=== PATIENT | female | born 1950 | race Caucasian/White ===

== ENCOUNTER → 2017-02-21 | Outpatient (CLI) | payer MEDICARE ==
[~2017-02-21] MED LIST: /CELE20CA PO; ANAG0.5C PO; HYDREA PO; INTRON A IM; JAKA5TAB PO; NEXI20CA PO; OMEP20TA7 PO; PARO20TA4 PO; PAXI20TA OR; PERC5TAB8 PO; TRAM50TA2 OR; TUMS500C PO; VITA1CAP2 PO; ZANA2CAP PO; savella PO
--- NOTE | 2017-02-21 12:33 | REPMRS ---
Patient History The patient states she had a clinical breast exam in 02/22 Patient is postmenopausal. Family history of breast cancer in mother at age 50 or over and breast cancer in maternal aunt at age 50 or over. Benign US guided breast biopsy of the left breast, January 16, 2012. Implants in both breasts, 1994. Took estrogen for 1 year 1 month. Digital Woman Screen Mammo: February 21, 2017 - Exam #: [id number] Bilateral MLO and CC view(s) were taken. Technologist: Briana Olivo, Technologist Prior study comparison: February 21, 2016, digital woman screen mammo performed at [facility]. February 19, 2015, digital woman screen mammo performed at [facility]. FINDINGS: There are scattered fibroglandular densities. There is a fairly symmetric fibroglandular pattern in both breasts. There has been no interval development of masses, areas of architectural distortion or clusters of microcalcifications typical of malignancy. ASSESSMENT: BI-RADS/ACR category 2 mammogram. Benign finding(s). Recommendation Routine screening mammogram of both breasts in 1 year (for women over age 40). This mammogram was interpreted with the aid of an FDA-approved computer-aided dectection system. Electronically Signed By: Bethel Monique MD 02/21/17 [id number]
== END ==
LOC: M WHC 10:26
PROVIDERS: ATTEND Nurse Practitioner Women's Health
DX: Z12.31 Encounter for screening mammogram for malignant neoplasm of breast (principal); Z78.0 Asymptomatic menopausal state; Z80.3 Family history of malignant neoplasm of breast; Z92.89 Personal history of other medical treatment; Z92.23 Personal history of estrogen therapy; Z98.82 Breast implant status
CPT/HCPCS: G0202; G0463

== ENCOUNTER 2017-03-21 10:40 | Outpatient (CLI) | payer MEDICARE ==
[~2017-03-21] VITALS: Ht 172.7 cm; Wt 63.5 kg
[2017-03-21] MEDS ORDERED: NS 1,000 ML IV ONE (11:00)
--- NOTE | 2017-03-21 12:10 | ROOR ---
Patient Name: Gladys Vaughan Procedure Date: 03/21/2017 11:53 AM Date of : 1950 Age: 66 [facility] Gender: Female Note Status: Finalized Procedure: Upper GI endoscopy + Balloon Dilatation Indications: Dysphagia, Heartburn Providers: Nic Prasad MD Referring MD: MARY LEE JR, MD Requesting Provider: Medicines: Monitored Anesthesia Care Complications: No immediate complications. Procedure: Pre-Anesthesia Assessment: - The heart rate, respiratory rate, oxygen saturations, blood pressure, adequacy of pulmonary ventilation, and response to care were monitored throughout the procedure. The Endoscope was introduced through the mouth, and advanced to the second part of duodenum. The upper GI endoscopy was accomplished without difficulty. The patient tolerated the procedure well. Findings: The Z-line was regular and was found 35 cm from the incisors. A medium-sized hiatal hernia was present. A TTS dilator was passed through the scope. Dilation with an 18-19-20 mm balloon dilator was performed to 20 mm in the entire esophagus. No other significant abnormalities were identified in a careful examination of the stomach. The exam of the duodenum was otherwise normal. Impression: - Z-line regular, 35 cm from the incisors. - Medium-sized hiatal hernia. - Dilation performed in the entire esophagus. - No specimens collected. - The examination was otherwise normal. Recommendation: - Patient has a contact number available for emergencies. The signs and symptoms of potential delayed complications were discussed with the patient. Return to normal activities tomorrow. Written discharge instructions were provided to the patient. - High fiber diet. - Discharge patient to home. - Continue present medications. - Follow an antireflux regimen. - Return to referring physician. - The findings and recommendations were discussed with the patient's family. Nic Prasad MD Nic Prasad MD 03/21/2017 12:10:36 PM This report has been signed electronically. Number of Addenda: 0 Note Initiated On: 03/21/2017 11:53 AM Estimated Blood Loss: Estimated blood loss: none.
[2017-03-21] MEDS ORDERED: PROPOFOL 200 MG/20 ML VIAL As Ordered ONE (12:19)
[2017-03-21] MEDS ORDERED: LIDOCAINE 2% INJ 100 MG/5 ML SDV (FOR ANES.) As Ordered ONE (12:19)
--- NOTE | 2017-03-21 12:33 | ROOR ---
Patient Name: Gladys Vaughan Procedure Date: 03/21/2017 11:53 AM Date of : 1950 Age: 66 Room: [facility] Gender: Female Note Status: Finalized Procedure: Total Colonoscopy to cecum + Biopsy Polypectomy Indications: Screening for colorectal malignant neoplasm Providers: Nic Prasad MD Referring MD: MARY LEE JR, MD Requesting Provider: Medicines: Monitored Anesthesia Care Complications: No immediate complications. Procedure: Pre-Anesthesia Assessment: - The heart rate, respiratory rate, oxygen saturations, blood pressure, adequacy of pulmonary ventilation, and response to care were monitored throughout the procedure. The Colonoscope was introduced through the anus and advanced to the cecum, identified by appendiceal orifice and ileocecal valve. The colonoscopy was performed without difficulty. The patient tolerated the procedure well. The quality of the bowel preparation was excellent. Findings: The perianal and digital rectal examinations were normal. Non-bleeding internal hemorrhoids were found during retroflexion. The hemorrhoids were small and Grade I (internal hemorrhoids that do not prolapse). Multiple small and large-mouthed diverticula were found in the recto-sigmoid colon, sigmoid colon and descending colon. Two sessile polyps were found in the mid ascending colon. The polyps were small in size. These polyps were removed with a jumbo cold forceps. Resection and retrieval were complete. The exam was otherwise without abnormality on direct and retroflexion views. Impression: - Non-bleeding internal hemorrhoids. - Diverticulosis in the recto-sigmoid colon, in the sigmoid colon and in the descending colon. - Two small polyps in the mid ascending colon, removed with a jumbo cold forceps. Resected and retrieved. - The examination was otherwise normal on direct and retroflexion views. - The exam was otherwise normal to the cecum. Recommendation: - Patient has a contact number available for emergencies. The signs and symptoms of potential delayed complications were discussed with the patient. Return to normal activities tomorrow. Written discharge instructions were provided to the patient. - High fiber diet. - Discharge patient to home. - Continue present medications. - Await pathology results. - Repeat colonoscopy in 10 years for surveillance based on pathology results. - Return to referring physician. - The findings and recommendations were discussed with the patient's family. Nic Prasad MD Nic Prasad MD 03/21/2017 12:32:48 PM This report has been signed electronically. Number of Addenda: 0 Note Initiated On: 03/21/2017 11:53 AM Estimated Blood Loss: Estimated blood loss: none.
[2017-03-21 13:05] VITALS: BP 101/56
== END 2017-03-21 13:10 | disposition home or self-care (01) ==
LOC: M OPP 10:40
PROVIDERS: ATTEND Internal Medicine Gastroenterology
DX: Z12.11 Encounter for screening for malignant neoplasm of colon (principal); D12.2 Benign neoplasm of ascending colon; K64.0 First degree hemorrhoids; K57.30 Diverticulosis of large intestine without perforation or abscess without bleeding; R13.10 Dysphagia, unspecified; R12 Heartburn; D47.3 Essential (hemorrhagic) thrombocythemia; R16.1 Splenomegaly, not elsewhere classified; D64.9 Anemia, unspecified; K44.9 Diaphragmatic hernia without obstruction or gangrene; R19.7 Diarrhea, unspecified; F32.9 Major depressive disorder, single episode, unspecified; Z79.899 Other long term (current) drug therapy; Z87.891 Personal history of nicotine dependence

== ENCOUNTER → 2017-10-29 | Outpatient (REF) | payer MEDICARE ==
[2017-10-29 12:56] LABS: IRON (FE) 104 UG/DL (50-170); PERCENT SATURATION 32.1 % (13.2-45.0); TOTAL IRON BINDING CAPACITY 324 UG/DL (250-450)
== END ==
LOC: M LAB REF 11:54
DX: D47.3 Essential (hemorrhagic) thrombocythemia (principal)
CPT/HCPCS: 83550

== ENCOUNTER → 2018-02-25 | Outpatient (CLI) | payer MEDICARE | LOC: M WHC 10:31 | DX: Z12.31 Encounter for screening mammogram for malignant neoplasm of breast (principal); Z98.82 Breast implant status; Z92.89 Personal history of other medical treatment; Z92.23 Personal history of estrogen therapy; Z80.3 Family history of malignant neoplasm of breast | CPT/HCPCS: 77067 ==

== ENCOUNTER → 2018-03-20 | Outpatient (CLI) | payer MEDICARE | LOC: M RAD 08:54 | DX: D47.3 Essential (hemorrhagic) thrombocythemia (principal) | CPT/HCPCS: 76705 ==

== ENCOUNTER 2018-10-01 09:47 | Emergency (ER) | payer MEDICARE ==
[~2018-10-01 09:47] MED LIST changes: -/CELE20CA PO; +CELE1CAP4 PO; +VITA-183 PO; -VITA1CAP2 PO
[2018-10-01] MEDS ORDERED: NS 500 ML IV ONE (10:45)
[2018-10-01 10:52] LABS: HEMATOCRIT 26.3 % (36.0-47.0); HEMOGLOBIN 8.1 g/dl (12.0-15.5); MEAN CORPUSCULAR HEMOGLOBIN 29.9 pg (27.0-33.0); MEAN CORPUSCULAR HGB CONC 30.8 g/dl (32.0-36.5); PLATELET COUNT, AUTOMATED 255 10^3/uL (150-450); RED BLOOD COUNT 2.71 10^6/uL (4.00-5.40)
[2018-10-01 11:06] LABS: CALCIUM LEVEL 8.8 MG/DL (8.8-10.2); CREATININE FOR GFR 1.32 MG/DL (0.55-1.30); FREE T4 0.83 NG/DL (0.76-1.46); GLOMERULAR FILTRATION RATE 42.5 (>45); MAGNESIUM LEVEL 2.4 MG/DL (1.8-2.4); POTASSIUM SERUM 4.1 MEQ/L (3.5-5.1); THYROID STIMULATING HORMONE 3.55 uIU/ML (0.358-3.740)
[2018-10-01 11:52] LABS: LYMPHOCYTES 31 % (16-52); MONOCYTES 6 % (0-8); NEUTROPHILS 50 % (35-75)
[2018-10-01 11:53] LABS: ATYPICAL LYMPH 3 % (0-5); BLAST CELLS 9 % (0-0)
[2018-10-01 12:12] LABS: ANISOCYTOSIS 2+; OVALOCYTES 1+; POIKILOCYTOSIS 1+; TARGET CELLS 2+
[2018-10-01 12:13] LABS: GIANT PLATELETS 2+; PLATELET ESTIMATE NORMAL (NORMAL)
[2018-10-01 13:48] LABS: APPEARANCE, URINE HAZY (CLEAR); BACTERIA, URINE AUTO NEGATIVE (NEGATIVE); BILIRUBIN, URINE AUTO NEGATIVE (NEGATIVE); BLOOD, URINE BLOOD NEGATIVE (NEGATIVE); COLOR, URINE YELLOW (YELLOW); GLUCOSE, URINE (UA) AUTO NEGATIVE (NEGATIVE); KETONE, URINE AUTO NEGATIVE (NEGATIVE); LEUKOCYTE ESTERASE, URINE AUTO NEGATIVE (NEGATIVE); MUCUS, URINE SMALL (NEGATIVE); NITRITE, URINE AUTO NEGATIVE (NEGATIVE); PROTEIN, URINE AUTO 1+ mg/dL (NEGATIVE); RBC, URINE AUTO 0 /HPF (0-3); SPECIFIC GRAVITY URINE AUTO 1.016 (1.002-1.035); SQUAMOUS EPITHELIAL CELL UR AU 0 /HPF (0-6); WBC, URINE AUTO 3 /HPF (0-3)
[2018-10-01 15:15] VITALS: BP 166/69
--- NOTE | 2018-10-01 19:55 | ECGEPIP ---
Stationary ECG Study [facility] - ED Test Date: 2018-10-01 Pat Name: ASHLEE RIBEIRO Department: Room: - Gender: F Clarifier: : 1950 Requested By: Liat Ortiz Order Number: [id number] Reading MD: Douglas Palafox Measurements Intervals Branscomb Rate: 67 P: 46 ND: 145 QRS: 50 QRSD: 86 T: 67 QT: 380 QTc: 401 Interpretive Statements SINUS RHYTHM POSSIBLE LEFT ATRIAL ENLARGEMENT NSTTW ABNORMALITIES SIMILAR TO 05/08/16 Electronically Signed On 10-01-2018 19:54:32 EDT by Douglas Palafox
== END 2018-10-01 15:43 | disposition home or self-care (01) ==
LOC: M ED 09:47
DX: C92.10 Chronic myeloid leukemia, BCR/ABL-positive, not having achieved remission (principal); I10 Essential (primary) hypertension; R55 Syncope and collapse; Z79.899 Other long term (current) drug therapy

== ENCOUNTER → 2019-02-26 | Outpatient (REF) | payer MEDICARE | LOC: M LAB REF 17:27 | PROVIDERS: ATTEND Internal Medicine | DX: D47.1 Chronic myeloproliferative disease (principal) ==

== ENCOUNTER → 2019-03-17 | Outpatient (REF) | payer MEDICARE ==
[2019-03-17 14:57] LABS: AMYLASE 83 U/L (25-115); LIPASE 245 U/L (73-393)
== END ==
LOC: M LAB REF 13:19
PROVIDERS: ATTEND Internal Medicine
DX: M79.7 Fibromyalgia (principal)

== ENCOUNTER → 2019-03-24 | Outpatient (REF) | payer MEDICARE ==
[~2019-03-24] MED LIST changes: +ANAG0.5C2; +LOPE2CAP; +RANI150T14; +VITA100T89 PO; +[UNRECOGNIZED DRUG - CODE]; +[UNRECOGNIZED DRUG - OTHER]
[2019-03-24 19:49] LABS: AMYLASE 81 U/L (25-115); LIPASE 203 U/L (73-393)
== END ==
LOC: M LAB REF 19:04
PROVIDERS: ATTEND Internal Medicine
DX: D75.9 Disease of blood and blood-forming organs, unspecified (principal)

== ENCOUNTER 2019-03-28 11:55 | Emergency (ER) | payer MEDICARE ==
[~2019-03-28] VITALS: Ht 172.7 cm; Wt 147.0 kg
[~2019-03-28 11:55] MED LIST changes: -ANAG0.5C2; -LOPE2CAP; -RANI150T14; -VITA100T89 PO; -[UNRECOGNIZED DRUG - CODE]; -[UNRECOGNIZED DRUG - OTHER]
[2019-03-28] MEDS ORDERED: [UNRECOGNIZED DRUG - CODE] (12:11)
[2019-03-28] MEDS ORDERED: RANI150T14 (12:11)
[2019-03-28] MEDS ORDERED: LOPE2CAP (12:11)
[2019-03-28] MEDS ORDERED: [UNRECOGNIZED DRUG - OTHER] (12:11)
[2019-03-28] MEDS ORDERED: ANAG0.5C2 (12:11)
[2019-03-28] MEDS ORDERED: VITA100T89 PO (12:13)
[2019-03-28] MEDS ORDERED: NS 1,000 ML IV ONE ×2 (13:45→15:15)
[2019-03-28 14:02] LABS: HEMATOCRIT 27.2 % (36.0-47.0); HEMOGLOBIN 8.7 g/dl (12.0-15.5); MEAN CORPUSCULAR HEMOGLOBIN 30.7 pg (27.0-33.0); MEAN CORPUSCULAR VOLUME 96.1 fl (80.0-96.0); PLATELET COUNT, AUTOMATED 449 10^3/uL (150-450); RED BLOOD COUNT 2.83 10^6/uL (4.00-5.40); WHITE BLOOD COUNT 4.8 10^3/uL (4.0-10.0)
[2019-03-28 14:35] LABS: ALBUMIN 4.1 GM/DL (3.2-5.2); BILIRUBIN,TOTAL 0.4 MG/DL (0.2-1.0); CALCIUM LEVEL 9.4 MG/DL (8.8-10.2); CREATININE FOR GFR 1.34 MG/DL (0.55-1.30); GLOMERULAR FILTRATION RATE 41.7 (>45); POTASSIUM SERUM 4.5 MEQ/L (3.5-5.1); TOTAL PROTEIN 7.2 GM/DL (6.4-8.2)
[2019-03-28 14:40] LABS: ATYPICAL LYMPH 1 % (0-5); BLAST CELLS 7 % (0-0); GIANT PLATELETS 2+; LYMPHOCYTES 18 % (16-44); METAMYELOCYTES 1 % (0-0); MONOCYTES 4 % (0-5); MYELOCYTES 5 % (0-0); NEUTROPHILS 58 % (28-66); NUCLEATED RED BLOOD CELL 1 % (0-0); PLATELET ESTIMATE NORMAL (NORMAL)
[2019-03-28 14:41] LABS: ANISOCYTOSIS 2+; OVALOCYTES 2+; POIKILOCYTOSIS 2+; TEAR DROP CELLS 2+
[2019-03-28 17:57] VITALS: BP 124/58
== END 2019-03-28 18:07 | disposition home or self-care (01) ==
LOC: EDBD 11:55 → M ED 11:55
DX: R11.10 Vomiting, unspecified (principal); T50.995A Adverse effect of other drugs, medicaments and biological substances, initial encounter; X58.XXXA Exposure to other specified factors, initial encounter; Y92.89 Other specified places as the place of occurrence of the external cause; Z79.899 Other long term (current) drug therapy

== ENCOUNTER → 2019-04-01 | Outpatient (CLI) | payer MEDICARE ==
[~2019-04-01] MED LIST changes: +ANAG0.5C2; +LOPE2CAP; +RANI150T14; +VITA100T89 PO; +[UNRECOGNIZED DRUG - CODE]; +[UNRECOGNIZED DRUG - OTHER]
--- NOTE | 2019-04-01 12:17 | REPMRS ---
Patient History The patient states she has not had a clinical breast exam in over a year. Patient is postmenopausal and had previous chemotherapy at age 68. Family history of breast cancer at age 50 or over in mother, breast cancer at age 50 or over in maternal aunt. Benign US guided breast biopsy of the left breast, January 16, 2012. Implants in both breasts, 1994. Took estrogen for 1 year 1 month. 3D TOMOSYNTHESIS WAS PERFORMED. The [facility] lifetime risk for breast cancer is 9.2%. Digital Woman Screen Mammo: April 01, 2019 - Exam #: [id number] Bilateral CC and MLO view(s) were taken. Technologist: Melissa Boyd, Technologist Prior study comparison: February 25, 2018, bilateral digital woman screen mammo performed at [facility]. February 21, 2017, digital woman screen mammo performed at [facility]. FINDINGS: There are scattered fibroglandular densities. There has been no change in the appearance of the mammogram from the prior studies. There is a mild amount of residual fibroglandular tissue which is fairly symmetric. There is no interval development of dominant mass, architectural distortion, or clustered microcalcification suggestive of malignancy. Assessment: BI-RADS/ACR category 1 mammogram. Negative Mammogram. Recommendation Routine screening mammogram in 1 year (for women over age 40). This mammogram was interpreted with the aid of an FDA-approved computer-aided dectection system. Electronically Signed By: Bethel Monique MD 04/01/19 2159
== END ==
LOC: M WHC 11:08
PROVIDERS: ATTEND Nurse Practitioner Women's Health
DX: Z12.31 Encounter for screening mammogram for malignant neoplasm of breast (principal); Z78.0 Asymptomatic menopausal state; Z92.21 Personal history of antineoplastic chemotherapy; Z80.3 Family history of malignant neoplasm of breast; Z98.82 Breast implant status

== ENCOUNTER → 2019-04-26 | Outpatient (CLI) | payer MEDICARE | LOC: M LAB 13:45 | PROVIDERS: ATTEND Internal Medicine Hematology | DX: Z01.83 Encounter for blood typing (principal) ==

== ENCOUNTER 2019-04-27 08:45 | Outpatient (CLI) | payer MEDICARE ==
[2019-04-27] VITALS (8 sets, daily range): BP systolic 159–180; BP diastolic 70–86
[~2019-04-27] VITALS: Ht 172.7 cm; Wt 67.6 kg
== END 2019-04-27 15:10 | disposition home or self-care (01) ==
LOC: M OPCLI5PR 08:45 → M MS5PR 08:47 → M OPCLI5PR 15:10
PROVIDERS: ATTEND Internal Medicine Hematology
DX: D64.9 Anemia, unspecified (principal)
CPT/HCPCS: 36430; P9040

== ENCOUNTER → 2019-06-13 | Outpatient (CLI) | payer MEDICARE ==
[~2019-06-13] MED LIST changes: +LISI10TA4 PO; +PARO30TA PO
--- NOTE | 2019-06-13 11:36 | REP ---
Left upper extremity duplex Doppler venous ultrasound. Real time compression and duplex Doppler evaluation of the left upper extremity deep venous system is performed. The left subclavian, jugular, axillary, brachial, basilic and cephalic veins are fully compressible where accessible with transducer pressure, and demonstrate no intraluminal thrombus and normal venous waveforms. There is no evidence of deep venous thrombosis. Impression: No evidence of deep venous thrombosis of the left upper extremity deep vein system. Electronically Signed by Bethel Monique MD 06/13/2019 11:28 A
== END ==
LOC: M RAD 10:06
PROVIDERS: ATTEND Internal Medicine Hematology & Oncology
DX: D47.3 Essential (hemorrhagic) thrombocythemia (principal); M79.602 Pain in left arm

== ENCOUNTER → 2019-12-04 | Outpatient (CLI) | payer MEDICARE ==
[~2019-12-04] MED LIST changes: -PARO30TA PO; +PARO30TA65 PO; +VITAD1000T PO; +[UNRECOGNIZED DRUG - CODE] PO
[2019-12-04 14:46] LABS: EOS % 0.2 % (0.0-3.0); HEMATOCRIT 23.4 % (36.0-47.0); HEMOGLOBIN 7.1 g/dl (12.0-15.5); LYMPH # 1.1 10^3/uL (1.5-5.0); LYMPH % 27.3 % (24.0-44.0); MEAN CORPUSCULAR HEMOGLOBIN 29.3 pg (27.0-33.0); MEAN CORPUSCULAR HGB CONC 30.3 g/dl (32.0-36.5); MEAN CORPUSCULAR VOLUME 96.7 fl (80.0-96.0); MONO # 0.9 10^3/uL (0.0-0.8); MONO % 22.2 % (0.0-5.0); NEUTROPHILS # 1.5 10^3/uL (1.5-8.5); NEUTROPHILS % 36.2 % (36.0-66.0); PLATELET COUNT, AUTOMATED 414 10^3/uL (150-450); RED BLOOD COUNT 2.42 10^6/uL (4.00-5.40); WHITE BLOOD COUNT 4.2 10^3/uL (4.0-10.0)
[2019-12-04 15:09] LABS: ALBUMIN 3.7 GM/DL (3.2-5.2); BILIRUBIN,TOTAL 0.2 MG/DL (0.2-1.0); CALCIUM LEVEL 8.6 MG/DL (8.8-10.2); CREATININE FOR GFR 1.13 MG/DL (0.55-1.30); GLOMERULAR FILTRATION RATE 50.7 (>39); POTASSIUM SERUM 4.9 MEQ/L (3.5-5.1); TOTAL PROTEIN 6.9 GM/DL (6.4-8.2)
[2019-12-04 16:05] LABS: FREE T4 0.92 NG/DL (0.76-1.46); PERCENT SATURATION 20.2 % (13.2-45.0); THYROID STIMULATING HORMONE 1.29 uIU/ML (0.358-3.740)
== END ==
LOC: M LAB 13:37
PROVIDERS: ATTEND Internal Medicine Hematology
DX: D47.3 Essential (hemorrhagic) thrombocythemia (principal); D47.1 Chronic myeloproliferative disease; Z79.899 Other long term (current) drug therapy

== ENCOUNTER → 2019-12-15 | Outpatient (REF) | payer MEDICARE | LOC: M LAB REF 12:12 | PROVIDERS: ATTEND Internal Medicine | DX: D64.9 Anemia, unspecified (principal) ==

== ENCOUNTER 2019-12-17 08:34 | Outpatient (CLI) | payer MEDICARE ==
[~2019-12-17] VITALS: Ht 172.7 cm; Wt 65.0 kg
[~2019-12-17 08:34] MED LIST changes: +ACETAMINOPHEN TAB 650MG DOSE (2X325MG) PO SCH; +diphenhydrAMINE 25MG CAP PO SCH
[2019-12-17 08:59] VITALS: BP 118/57
[2019-12-17 09:11] VITALS: BP 118/57
[2019-12-17 09:30] VITALS: BP 128/66
[2019-12-17 10:28] VITALS: BP 137/65
[2019-12-17 10:45] VITALS: BP 168/71
[2019-12-17 11:10] VITALS: BP 196/78
== END 2019-12-17 11:10 | disposition home or self-care (01) ==
LOC: M INFU 08:34
PROVIDERS: ATTEND Internal Medicine
DX: D64.9 Anemia, unspecified (principal)
CPT/HCPCS: 36430; P9016

== ENCOUNTER 2019-12-25 21:57 | Observation (INO) | payer MEDICARE ==
[~2019-12-25] VITALS: Ht 172.7 cm; Wt 65.5 kg
[~2019-12-25 21:57] MED LIST changes: -ACETAMINOPHEN TAB 650MG DOSE (2X325MG) PO SCH; -diphenhydrAMINE 25MG CAP PO SCH
[2019-12-25] MEDS: NS 1,000 ML IV SCH (22:17)
[2019-12-25] MEDS: GASTROGRAFIN SOLUTION 30ML PO SCH (23:37)
[2019-12-26] MEDS: GASTROGRAFIN SOLUTION 30ML PO SCH (00:11)
[2019-12-26 00:13] LABS: HEMATOCRIT 27.5 % (36.0-47.0); HEMOGLOBIN 8.5 g/dl (12.0-15.5); MEAN CORPUSCULAR HEMOGLOBIN 29.4 pg (27.0-33.0); MEAN CORPUSCULAR HGB CONC 30.9 g/dl (32.0-36.5); MEAN CORPUSCULAR VOLUME 95.2 fl (80.0-96.0); PLATELET COUNT, AUTOMATED 370 10^3/uL (150-450); RED BLOOD COUNT 2.89 10^6/uL (4.00-5.40); WHITE BLOOD COUNT 4.9 10^3/uL (4.0-10.0)
[2019-12-26 00:34] LABS: ATYPICAL LYMPH 3 % (0-5); BASOPHILS 2 % (0-1); BLAST CELLS 1 % (0-0); LYMPHOCYTES 18 % (16-44); METAMYELOCYTES 2 % (0-0); MONOCYTES 6 % (0-5); MYELOCYTES 2 % (0-0); NEUTROPHILS 64 % (28-66)
[2019-12-26 00:35] LABS: ANISOCYTOSIS 1+; PLATELET ESTIMATE NORMAL (NORMAL); POIKILOCYTOSIS 1+
[2019-12-26 00:36] LABS: OVALOCYTES 1+; TEAR DROP CELLS 1+
[2019-12-26 00:41] LABS: ALBUMIN 3.5 GM/DL (3.2-5.2); BILIRUBIN,DIRECT 0.1 MG/DL (0.0-0.2); BILIRUBIN,TOTAL 0.2 MG/DL (0.2-1.0); CALCIUM LEVEL 8.2 MG/DL (8.8-10.2); CREATININE FOR GFR 1.09 MG/DL (0.55-1.30); GLOMERULAR FILTRATION RATE 52.8 (>39); POTASSIUM SERUM 4.9 MEQ/L (3.5-5.1); TOTAL PROTEIN 6.4 GM/DL (6.4-8.2)
[2019-12-26] MEDS ORDERED: ISOVUE-370 76% 100ML VIAL As Ordered ONE (00:46)
--- NOTE | 2019-12-26 01:57 | REPVR ---
PROCEDURE INFORMATION: Exam: CT Abdomen And Pelvis With Contrast Exam date and time: 12/25/2019 10:17 PM Age: 69 years old Clinical indication: Abdominal pain; Generalized; Additional info: Gen abd pain vomiting TECHNIQUE: Imaging protocol: Computed tomography of the abdomen and pelvis with intravenous contrast. Radiation optimization: All CT scans at this facility use at least one of these dose optimization techniques: automated exposure control; mA and/or kV adjustment per patient size (includes targeted exams where dose is matched to clinical indication); or iterative reconstruction. Contrast material: ISO; Contrast volume: 100 ml; Contrast route: INTRAVENOUS (IV); COMPARISON: Abdomen, limited US 2018-03-20 09:12 FINDINGS: Mediastinal space: Small to medium size hiatal hernia. Liver: Small, less than 5 mm, liver hypodensity. Highly likely to be benign and does not require follow-up imaging or biopsy per ACR. Gallbladder and bile ducts: Normal. No calcified stones. No ductal dilation. Pancreas: Pancreatic divisum incidentally noted. Spleen: Splenomegaly. Adrenals: Normal. No mass. Kidneys and ureters: Normal. No hydronephrosis. Stomach and bowel: Excessive fluid in the colon, correlate for diarrheal illness. Appendix: No evidence of appendicitis. Intraperitoneal space: Unremarkable. No free air. No significant fluid collection. Vasculature: Unremarkable. No abdominal aortic aneurysm. Lymph nodes: Unremarkable. No enlarged lymph nodes. Bladder: Unremarkable as visualized. Reproductive: Unremarkable as visualized. Bones/joints: L4 small bone island. Soft tissues: Left inguinal fat protruding hernia. Breast implants. IMPRESSION: 1. Small to medium size hiatal hernia. 2. Splenomegaly. 3. Excessive fluid in the colon, correlate for diarrheal illness. Electronically signed by: Jerad Silveira On 12/26/2019 01:57:06 AM
[2019-12-26] MEDS ORDERED: NS 1,000 ML IV ONE (03:15)
[2019-12-26] MEDS ORDERED: ZOLP5TAB PO (03:21)
[2019-12-26] MEDS ORDERED: [UNRECOGNIZED DRUG - CODE] PO (03:21)
[2019-12-26] MEDS ORDERED: LOPERAMIDE 2 MG CAPLET PO PRN (05:00)
--- NOTE | 2019-12-26 05:33 | HPEPDOC ---
[facility] Medical History & Physical Date of Admission Dec 26, 2019 Date of Service: Dec 26, 2019 Attending Physician: DONNIE MCKEON MD History and Physical CHIEF COMPLAINT: Vomiting and diarrhea HISTORY OF PRESENT ILLNESS: 69-year-old female with past medical history of essential thrombocythemia, splenomegaly, anemia, hypertension and GERD presents with vomiting and diarrhea. Patient reports sudden onset of vomiting at 8 PM last night followed by diarrhea a few hours later. Patient has had extensive watery diarrhea since coming to the emergency department. She reports eating 2 days old leftovers at 4 PM yesterday, which included chicken. She denies any fever, sick contacts, shortness of breath, chest pain, coughing, or urinary complaints. 10 point review of system is negative except for above PAST MEDICAL HISTORY: 1. Essential thrombocythemia. 2. Splenomegaly. 3. Chronic anemia. 4. Hypertension. 5. GERD PAST SURGICAL HISTORY: 1. Hernia repair. SOCIAL HISTORY: Previous smoker. Denies alcohol use. Denies drug use FAMILY HISTORY: Negative for malignancy ALLERGIES: Please see below. HOME MEDICATIONS: Please see below. PHYSICAL EXAMINATION: VITAL SIGNS: Please see below. GENERAL: No distress HEENT: Normocephalic, atraumatic, moist mucous membranes NECK: Supple CARDIOVASCULAR EXAMINATION: S1, S2, no murmurs RESPIRATORY EXAMINATION: Scattered rhonchi, no wheezing ABDOMINAL EXAMINATION: Soft, nontender, nondistended, hypoactive bowel sounds EXTREMITIES: Range of motion intact SKIN: No rash NEUROLOGICAL EXAMINATION: Alert and oriented 3, no focal deficits PSYCHIATRIC EXAMINATION: Calm and cooperative LABORATORY DATA: See below. IMAGING: CT abdomen and pelvis without acute pathology MICROBIOLOGY: Please see below. ASSESSMENT: 59-year-old female with multiple medical comorbidities is being admitted for gastroenteritis. PLAN: 1. Vomiting/diarrhea Food poisoning from eating leftovers, GI panel negative, Imodium as needed, IV fluids, can likely be discharged in 24-48 hours. 2. Essential thrombocythemia. Continue Anagrelide 1.5 mg daily 3. GERD. Continue Nexium 4. Hypertension. Continue lisinopril DVT prophylaxis: Lovenox. GI prophylaxis: Home PPI Vital Signs Vital Signs Date Time Temp Pulse Resp B/P (MAP) Pulse Ox O2 Delivery O2 Flow Rate FiO2 12/26/19 00:57 77 96 12/26/19 00:11 164/80 (108) 156/78 (104) 12/25/19 22:19 99.9 16 Laboratory Data Labs 24H Laboratory Tests 2 12/25/19 23:49: Immature Granulocyte % (Auto) , Neutrophils (%) (Auto) , Nucleated Red Blood Cells % (auto) 0.6H, Neutrophils 64, Band Neutrophils 2, Lymphocytes (Manual) 18, Monocytes (Manual) 6H, Basophils (Manual) 2H, Metamyelocytes 2H, Myelocytes 2H, Blastocytes 1H, Atypical Lymphocytes 3, Poikilocytosis 1+, Anisocytosis 1+, Tear Drop Cells 1+, Ovalocytes 1+, Platelet Estimate NORMAL, Anion Gap 4L, Glomerular Filtration Rate 52.8, Calcium Level 8.2L, Total Bilirubin 0.2, Direct Bilirubin 0.1, Aspartate Amino Transf (AST/SGOT) 19, Alanine Aminotransferase (ALT/SGPT) 22, Alkaline Phosphatase 58, Total Protein 6.4, Albumin 3.5, Albumin/Globulin Ratio 1.2, Lipase 632H CBC/BMP Laboratory Tests 12/25/19 23:49 Microbiology Microbiology 12/26/19 Gastrointestinal Tract Panel (PCR) - Final, Complete Home Medications Scheduled Anagrelide HCl (Agrylin) 0.5 Mg Capsule, 1 MG PO QAM Anagrelide HCl (Agrylin) 0.5 Mg Capsule, 0.5 MG PO DAILY @1500 Cholecalciferol (Vitamin D3) (Vitamin D3) 1,000 Unit Tablet, 1,000 UNITS PO DAILY Esomeprazole Magnesium (Nexium) 20 Mg Cap, 20 MG PO DAILY @ 1500 Lisinopril (Lisinopril) 10 Mg Tablet, 10 MG PO QHS @ 1900 Paroxetine (Paroxetine HCl) 30 Mg Tablet, 30 MG PO DAILY Zolpidem Tartrate (Zolpidem Tartrate) 5 Mg Tablet, 5 MG PO QHS @ 1900 Allergies Coded Allergies: fedratinib (Verified Allergy, Intermediate, 06/10/19) A-FIB/CHADSVASC A-FIB History Current/History of A-Fib/PAF?: No DONNIE MCKEON MD Dec 26, 2019 05:33
[2019-12-26 05:51] VITALS: BP 150/80
[2019-12-26] MEDS: NS 1,000 ML IV SCH (06:30)
[2019-12-26] MEDS ORDERED: VITAMIN D 1,000 INTERNATIONAL UNITS TABLET PO SCH (09:00)
[2019-12-26] MEDS ORDERED: ENOXAPARIN 40MG/0.4ML SYRINGE (J1650 PER 10MG) SC SCH (09:00)
[2019-12-26] MEDS ORDERED: PARoxetine 10MG TABLET PO SCH (09:00)
[2019-12-26] MEDS ORDERED: ENTER DRUG NAME HERE (PATIENT'S OWN MED) PO SCH (09:00)
[2019-12-26 12:00] VITALS: BP 162/70
--- NOTE | 2019-12-26 14:22 | DS.PDOC ---
Discharge Summary General Date of Admission Dec 25, 2019 at 21:58 Date of Discharge 12/26/2019 Discharge Summary PROCEDURES PERFORMED DURING STAY: [None]. ADMITTING DIAGNOSES / DISCHARGE DIAGNOSES: Intractable Nausea / Vomiting and Diarrhea - likely 2/2 food poisoning Elevated lipase - likely 2/2 nausea / vomiting Essential thrombocythemia Hypertension GERD DVT prophylaxis COMPLICATIONS/CHIEF COMPLAINT: Nausea / Vomiting HISTORY OF PRESENT ILLNESS: Patient is a 69-year-old female with PMHx of essential thrombocythemia, splenomegaly, anemia, hypertension and GERD presents with vomiting and diarrhea. Patient reports sudden onset of vomiting at 8 PM last night followed by diarrhea a few hours later. Patient has had extensive watery diarrhea since coming to the emergency department. She reports eating 2 days old leftovers at 4 PM yesterday, which included chicken. She denies any fever, sick contacts, shortness of breath, chest pain, coughing, or urinary complaints. HOSPITAL COURSE: Intractable Nausea / Vomiting and Diarrhea - likely 2/2 food poisoning - Clinically reports resolution of N/V and diarrhea - Hemodynamically stable / afebrile - Lab work noted - GI panel negative - CT abdomen / pelvis 12/24: 1. Small to medium size hiatal hernia. 2. Splenomegaly. 3. Excessive fluid in the colon, correlate for diarrheal illness. - s/p Imodium; advised to continue PRN as needed on discharge; advised OTC use Elevated lipase - likely 2/2 nausea / vomiting - No epigastric tenderness - Not enough criteria met for pancreatitis diagnosis Essential thrombocythemia - c/w Anagrelide Hypertension - Moderately elevated today - Will DC IV fluids - c/w lisinopril GERD - c/w PPI DVT prophylaxis - c/w Lovenox DISCHARGE MEDICATIONS: Please see below. ALLERGIES: Please see below. PHYSICAL EXAMINATION ON DISCHARGE: Vitals (See below) General: Lying in bed, appears comfortable, AAOx3 HEENT: NC, AT CVS: +S1S2 Lungs: Fair air entry b/l, -w/r/r Abdomen: Soft, ND, NT Extremities: - Edema, - Calf tenderness LABORATORY DATA: Please see below. ACTIVITY: [As tolerated]. DISCHARGE PLAN: Follow up with PCP within 7 days Remain compliant with treatment plan and medications Return to the ER if you experience any problems DISPOSITION: Home, Self-Care. DISCHARGE CONDITION: [Stable]. TIME SPENT ON DISCHARGE: 35 minutes. Vital Signs/I&Os Vital Signs Date Time Temp Pulse Resp B/P (MAP) Pulse Ox O2 Delivery O2 Flow Rate FiO2 12/26/19 12:00 97.7 71 16 162/70 (100) 98 Room Air I&O- Last 24 Hours up to 6 AM0 12/26/19 06:00 Intake Total 1300 ml Balance 1300 ml Laboratory Data Labs 24H Laboratory Tests 2 12/25/19 23:49: Immature Granulocyte % (Auto) , Neutrophils (%) (Auto) , Nucleated Red Blood Cells % (auto) 0.6H, Neutrophils 64, Band Neutrophils 2, Lymphocytes (Manual) 18, Monocytes (Manual) 6H, Basophils (Manual) 2H, Metamyelocytes 2H, Myelocytes 2H, Blastocytes 1H, Atypical Lymphocytes 3, Poikilocytosis 1+, Anisocytosis 1+, Tear Drop Cells 1+, Ovalocytes 1+, Platelet Estimate NORMAL, Anion Gap 4L, Glomerular Filtration Rate 52.8, Calcium Level 8.2L, Total Bilirubin 0.2, Direct Bilirubin 0.1, Aspartate Amino Transf (AST/SGOT) 19, Alanine Aminotransferase (ALT/SGPT) 22, Alkaline Phosphatase 58, Total Protein 6.4, Albumin 3.5, Albumin/Globulin Ratio 1.2, Lipase 632H CBC/BMP Laboratory Tests 12/25/19 23:49 Microbiology Microbiology 12/26/19 Gastrointestinal Tract Panel (PCR) - Final, Complete Discharge Medications Scheduled Anagrelide HCl (Agrylin) 0.5 Mg Capsule, 1 MG PO QAM, (Reported) Anagrelide HCl (Agrylin) 0.5 Mg Capsule, 0.5 MG PO DAILY, (Reported) @1500 Cholecalciferol (Vitamin D3) (Vitamin D3) 1,000 Unit Tablet, 1,000 UNITS PO DAILY, (Reported) Esomeprazole Magnesium (Nexium) 20 Mg Cap, 20 MG PO DAILY, (Reported) @ 1500 Lisinopril (Lisinopril) 10 Mg Tablet, 10 MG PO QHS, (Reported) @ 1900 Paroxetine (Paroxetine HCl) 30 Mg Tablet, 30 MG PO DAILY, (Reported) Zolpidem Tartrate (Zolpidem Tartrate) 5 Mg Tablet, 5 MG PO QHS, (Reported) @ 1900 Allergies Coded Allergies: fedratinib (Verified Allergy, Intermediate, 06/10/19) ALISHA DENISE MD Dec 26, 2019 14:22
[2019-12-26] MEDS ORDERED: PANTOPRAZOLE 40MG TAB (PROTONIX) PO SCH (15:00)
[2019-12-26] MEDS ORDERED: lisinopriL 10 MG TAB PO SCH (20:00)
[2019-12-26] MEDS ORDERED: zolPIDEM TARTRATE 5 MG TAB PO SCH (20:00)
== END 2019-12-26 13:31 | disposition home or self-care (01) ==
LOC: M ED 21:57 → M ED INP 21:58 → ENRESERV 12-26 05:02 → M PCU 12-26 05:51
PROVIDERS: ADMIT Internal Medicine; ATTEND Internal Medicine
DX: R11.2 Nausea with vomiting, unspecified (principal); R19.7 Diarrhea, unspecified; R74.8 Abnormal levels of other serum enzymes; D47.3 Essential (hemorrhagic) thrombocythemia; R16.1 Splenomegaly, not elsewhere classified; K44.9 Diaphragmatic hernia without obstruction or gangrene; I10 Essential (primary) hypertension; K21.9 Gastro-esophageal reflux disease without esophagitis; D64.9 Anemia, unspecified; F32.9 Major depressive disorder, single episode, unspecified; Z79.899 Other long term (current) drug therapy; Z88.8 Allergy status to other drugs, medicaments and biological substances; Z87.891 Personal history of nicotine dependence
CPT/HCPCS: 36415; 74177; 80048; 80076; 83690; 85025; 87507; 93041; 99285; G0378; Q9963; Q9967

== ENCOUNTER → 2020-02-10 | Outpatient (REF) | payer MEDICARE ==
[~2020-02-10] MED LIST changes: +ARAN200I3 IV; +D31000TA2 PO; +HYDR12CA PO; +LISI-538 PO; +LOPE1CAP5 PO; -VITAD1000T PO; +ZOLP5TAB PO
== END ==
LOC: M LAB REF 10:38
PROVIDERS: ATTEND Internal Medicine
DX: D64.9 Anemia, unspecified (principal)

== ENCOUNTER 2020-02-11 09:30 | Outpatient (CLI) | payer MEDICARE ==
[~2020-02-11 09:30] MED LIST changes: +ACETAMINOPHEN TAB 650MG DOSE (2X325MG) As Ordered ONE; +ACETAMINOPHEN TAB 650MG DOSE (2X325MG) ONE; -ARAN200I3 IV; -HYDR12CA PO; -LISI-538 PO; -LOPE1CAP5 PO; +diphenhydrAMINE 25MG CAP As Ordered ONE; +diphenhydrAMINE 25MG CAP ONE
== END 2020-02-11 14:00 | disposition home or self-care (01) ==
LOC: M INFU 09:30
PROVIDERS: ATTEND Internal Medicine
DX: D64.9 Anemia, unspecified (principal)
CPT/HCPCS: 36430; 86920; P9016

== ENCOUNTER → 2020-03-22 | Outpatient (CLI) | payer MEDICARE ==
[~2020-03-22] MED LIST changes: -ACETAMINOPHEN TAB 650MG DOSE (2X325MG) As Ordered ONE; -ACETAMINOPHEN TAB 650MG DOSE (2X325MG) ONE; +ARAN200I3 IV; +HYDR12CA PO; +LISI-538 PO; +LOPE1CAP5 PO; -diphenhydrAMINE 25MG CAP As Ordered ONE; -diphenhydrAMINE 25MG CAP ONE
[2020-03-22 12:44] LABS: HEMOGLOBIN 8.4 g/dl (12.0-15.5); MEAN CORPUSCULAR HEMOGLOBIN 28.5 pg (27.0-33.0); MEAN CORPUSCULAR VOLUME 94.9 fl (80.0-96.0); PLATELET COUNT, AUTOMATED 454 10^3/uL (150-450); RED BLOOD COUNT 2.95 10^6/uL (4.00-5.40); WHITE BLOOD COUNT 5.6 10^3/uL (4.0-10.0)
[2020-03-22 13:20] LABS: BILIRUBIN,TOTAL 0.3 MG/DL (0.2-1.0); CALCIUM LEVEL 9.2 MG/DL (8.8-10.2); CREATININE FOR GFR 1.22 MG/DL (0.55-1.30); GLOMERULAR FILTRATION RATE 46.4 (>39); POTASSIUM SERUM 5.7 MEQ/L (3.5-5.1); TOTAL PROTEIN 7.1 GM/DL (6.4-8.2)
[2020-03-22 13:40] LABS: ATYPICAL LYMPH 6 % (0-5); LYMPHOCYTES 26 % (16-44); METAMYELOCYTES 4 % (0-0); MONOCYTES 10 % (0-5); MYELOCYTES 4 % (0-0); NEUTROPHILS 46 % (28-66)
[2020-03-22 13:41] LABS: ANISOCYTOSIS 1+; OVALOCYTES 1+; PLATELET ESTIMATE NORMAL (NORMAL); TEAR DROP CELLS 1+
[2020-03-22 13:43] LABS: GIANT PLATELETS 1+
== END ==
LOC: M LAB 12:08
PROVIDERS: ATTEND Nurse Practitioner Adult Health
DX: D47.3 Essential (hemorrhagic) thrombocythemia (principal); D75.81 Myelofibrosis; D63.0 Anemia in neoplastic disease

== ENCOUNTER 2020-04-02 15:10 | Observation (INO) | payer MEDICARE ==
[~2020-04-02] VITALS: Ht 172.7 cm; Wt 64.5 kg
[~2020-04-02 15:10] MED LIST changes: -ARAN200I3 IV; -HYDR12CA PO; -LISI-538 PO; -LOPE1CAP5 PO
[2020-04-02] MEDS ORDERED: ARAN200I3 IV (15:40)
[2020-04-02] MEDS ORDERED: LOPE1CAP5 PO (15:41)
[2020-04-02 16:27] LABS: INR 0.99; PROTHROMBIN TIME 13.2 SECONDS (12.5-14.3)
--- NOTE | 2020-04-02 19:49 | HPEPDOC ---
[facility] Medical History & Physical Date of Admission Apr 02, 2020 Date of Service: Apr 02, 2020 History and Physical CHIEF COMPLAINT: Lightheaded HISTORY OF PRESENT ILLNESS: 69-year-old female with a past medical history of essential tremor psychosis, aplastic anemia, myelofibrosis was sent here by her coal sample tester after routine blood work revealed a low hemoglobin accompanied with symptomatically anemia. Patient is complaining of occasional palpitations, some shortness of breath, and lightheadedness. She requires regular transfusions due to her medical history and routinely gets the same symptoms every time prior to requiring transfusions. Her blood transfusion needs to be delivered from [facility] and patient will be admitted to the medical unit for observation. PAST MEDICAL HISTORY: Essential thrombocytosis Aplastic anemia Myelofibrosis Hypertension PAST SURGICAL HISTORY: Right inguinal hernia repair, tonsillectomy, right arm surgery. SOCIAL HISTORY: Denies drinking alcohol or smoking tobacco or using illicit drugs. FAMILY HISTORY: Noncontributory ALLERGIES: Please see below. REVIEW OF SYSTEMS: Constitutional: No sweating or weight loss. Lightheaded, occasional palpitations and some shortness of breath. Eyes: No eye pain or acute blurred vision HENT: No complaints of headache or sore throat Cadiovascular: No Chest pain. some palpitations Pulm: no cough Gastrointestinal: No N/V, no abdominal pain. Genitourinary: No dysuria or hematuria Musculoskeletal: No back pain or joint pain Skin: No rash or jaundice Neurological: No weakness. HOME MEDICATIONS: Please see below. PHYSICAL EXAMINATION: Constitutional: Awake and alert, in no apparent distress ENT: Sclera are clear. Mucosa is moist. Respiratory: Lungs CTA bilaterally. No respiratory distress. No use of acces rozina muscles. Cardiovascular: RRR S1 and S2 are normal, no murmur Gastrointestinal: Abdomen is soft, non distended, non tender, BS present. Musculoskeletal: No edema Neurologic: No focal neurological deficit. Mental Status: A&O x3, normal affect Skin: Warm, dry LABORATORY DATA: See below. MICROBIOLOGY: Please see below. A/P 69-year-old female with a past medical history of essential tremor psychosis, aplastic anemia, myelofibrosis was sent here by her coal sample tester after routine blood work revealed a low hemoglobin accompanied with symptomatically anemia. Patient is complaining of occasional palpitations, some shortness of breath, and lightheadedness. She requires regular transfusions due to her medical history and routinely gets the same symptoms every time prior to requiring transfusions. Her blood transfusion needs to be delivered from [facility] and patient will be admitted to the medical unit for observation. # Symptomatic Anemia: Here for blood transfusion. Recurrent problem due to her medical history. To follow-up with coal sample tester upon discharge. Follow-up CBC after blood transfusion. # HTN: Takes lisinopril 10 mg at home. Blood pressure elevated, will start lisinopril 20 mg and hydrochlorothiazide 12.5. # Essential tremor psychosis and myelofibrosis: Follows up with hematology has appointment next Sunday. # DVT prophylaxis: Heparin A Youse[facility] Hospitalist Vital Signs Vital Signs Date Time Temp Pulse Resp B/P (MAP) Pulse Ox O2 Delivery O2 Flow Rate FiO2 04/02/20 15:34 04/02/20 15:11 97.7 93 16 98 Room Air Laboratory Data Labs 24H Laboratory Tests 2 04/02/20 15:44: Prothrombin Time 13.2, Prothromb Time International Ratio 0.99 Home Medications Scheduled Anagrelide HCl (Agrylin) 0.5 Mg Capsule, 0.5 MG PO TID Cholecalciferol (Vitamin D3) (Vitamin D3) 1,000 Unit Tablet, 1,000 UNITS PO DAILY Darbepoetin Fabrizio in Polysorbat (Aranesp) 200 Mcg/0.4 Ml Syringe, 200 MCG IV Q2WK Esomeprazole Magnesium (Nexium) 20 Mg Cap, 20 MG PO DAILY @ 1500 Lisinopril (Lisinopril) 10 Mg Tablet, 10 MG PO QHS Paroxetine (Paroxetine HCl) 30 Mg Tablet, 30 MG PO DAILY Zolpidem Tartrate (Zolpidem Tartrate) 5 Mg Tablet, 5 MG PO QHS @ 1900 Scheduled PRN Loperamide HCl (Loperamide) 2 Mg Capsule, 4 MG PO Q6H PRN for AFTER EACH LOOSE STOOL Allergies Coded Allergies: fedratinib (Verified Allergy, Intermediate, 06/10/19) A-FIB/CHADSVASC A-FIB History Current/History of A-Fib/PAF?: No DIANA LIND MD Apr 02, 2020 19:49
[2020-04-02] MEDS ORDERED: lisinopriL 10 MG TAB PO SCH (21:00)
[2020-04-02 21:34] VITALS: BP 172/74
[2020-04-02] MEDS ORDERED: ACETAMINOPHEN TAB 650MG DOSE (2X325MG) PO PRN (22:00)
[2020-04-02] MEDS ORDERED: diphenhydrAMINE 50MG/ML VIAL (J1200) IV ONE (22:00)
[2020-04-02 22:34] VITALS: BP 185/85
[2020-04-02 23:17] VITALS: BP 185/85
[2020-04-02 23:30] VITALS: BP 173/75
[2020-04-03] VITALS (7 sets, daily range): BP systolic 154–194; BP diastolic 70–80
[2020-04-03] MEDS ORDERED: hydroCHLOROthiazide 12.5 MG CAPSULE PO SCH ×2 (03:00→09:00)
[2020-04-03 03:32] LABS: HEMOGLOBIN 8.4 g/dl (12.0-15.5); MEAN CORPUSCULAR HEMOGLOBIN 29.6 pg (27.0-33.0); MEAN CORPUSCULAR HGB CONC 31.1 g/dl (32.0-36.5); MEAN CORPUSCULAR VOLUME 95.1 fl (80.0-96.0); RED BLOOD COUNT 2.84 10^6/uL (4.00-5.40); WHITE BLOOD COUNT 3.2 10^3/uL (4.0-10.0)
[2020-04-03 03:34] LABS: PLATELET COUNT, AUTOMATED 257 10^3/uL (150-450)
[2020-04-03 04:15] LABS: ALBUMIN 3.3 GM/DL (3.2-5.2); BILIRUBIN,TOTAL 1.3 MG/DL (0.2-1.0); CALCIUM LEVEL 8.4 MG/DL (8.8-10.2); CREATININE FOR GFR 1.05 MG/DL (0.55-1.30); GLOMERULAR FILTRATION RATE 55.2 (>39); POTASSIUM SERUM 4.5 MEQ/L (3.5-5.1); TOTAL PROTEIN 6.5 GM/DL (6.4-8.2)
[2020-04-03 04:27] LABS: ATYPICAL LYMPH 3 % (0-5); BLAST CELLS 3 % (0-0); LYMPHOCYTES 39 % (16-44); METAMYELOCYTES 5 % (0-0); MONOCYTES 3 % (0-5); MYELOCYTES 3 % (0-0); NEUTROPHILS 36 % (28-66)
[2020-04-03 04:33] LABS: OVALOCYTES 1+; POIKILOCYTOSIS 2+; TEAR DROP CELLS 2+
[2020-04-03 04:34] LABS: ANISOCYTOSIS 1+; PLATELET ESTIMATE NORMAL (NORMAL); POLYCHROMASIA 1+
[2020-04-03 07:28] LABS: HEMATOCRIT 27.7 % (36.0-47.0); HEMOGLOBIN 8.5 g/dl (12.0-15.5); MEAN CORPUSCULAR HEMOGLOBIN 28.7 pg (27.0-33.0); MEAN CORPUSCULAR HGB CONC 30.7 g/dl (32.0-36.5); MEAN CORPUSCULAR VOLUME 93.6 fl (80.0-96.0); PLATELET COUNT, AUTOMATED 264 10^3/uL (150-450); RED BLOOD COUNT 2.96 10^6/uL (4.00-5.40); WHITE BLOOD COUNT 3.1 10^3/uL (4.0-10.0)
[2020-04-03 07:46] LABS: CALCIUM LEVEL 8.6 MG/DL (8.8-10.2); CREATININE FOR GFR 1.03 MG/DL (0.55-1.30); GLOMERULAR FILTRATION RATE 56.4 (>39); POTASSIUM SERUM 4.4 MEQ/L (3.5-5.1)
[2020-04-03] MEDS ORDERED: PARoxetine 10MG TABLET PO SCH (09:00)
[2020-04-03] MEDS ORDERED: ENOXAPARIN 40MG/0.4ML SYRINGE (J1650 PER 10MG) SC SCH (09:00)
--- NOTE | 2020-04-03 11:08 | IPNPDOC ---
Text Note Date of Service The patient was seen on 04/03/20. NOTE S O Constitutional: Awake and alert, in no apparent distress ENT: Sclera are clear. Mucosa is moist. Respiratory: Lungs CTA bilaterally. No respiratory distress. No use of accessory muscles. Cardiovascular: RRR S1 and S2 are normal, no murmur Gastrointestinal: Abdomen is soft, non distended, non tender, BS present. Musculoskeletal: No edema Neurologic: No focal neurological deficit. Mental Status: A&O x3, normal affect Skin: Warm, dry A/P 69-year-old female with a past medical history of essential tremor psychosis, aplastic anemia, myelofibrosis was sent here by her art instructor after routine blood work revealed a low hemoglobin accompanied with symptomatically anemia. Patient is complaining of occasional palpitations, some shortness of breath, and lightheadedness. She requires regular transfusions due to her medical history and routinely gets the same symptoms every time prior to requiring transfusions. Her blood transfusion needs to be delivered from [facility] and patient will be admitted to the medical unit for observation. She received 1 unit of blood last night with resolution of her symptomatic anemia. She will be discharged to home 04/03 and will follow-up with hematology next Sunday as scheduled. # Symptomatic Anemia: Here for blood transfusion. Recurrent problem due to her medical history. To follow-up with art instructor upon discharge. Hemoglobin improved to around baseline. Symptoms of shortness of breath, palpitations, light headedness have resolved. # HTN: Takes lisinopril 10 mg at home. Blood pressure elevated, will start lisin opril 20 mg and hydrochlorothiazide 12.5. Her blood pressure has improved since admission but remains elevated. She tells me she is anxious by being in the hospital which could be contributing to her elevated blood pressure. She tells me she checks her blood pressure home and it is usually normal with lisinopril 10 mg. I have her increase her lisinopril to 20 mg and added hydrochlorothiazide 12.5. Given this information I will hold off on increasing her medications any further as I'm worried when she goes home and is less stressed she might become hypotensive and have her follow-up with her primary care doctor in 3-5 days and bring in blood pressure measurements at home to his office and titrate medicines per PCP. # Essential tremor psychosis and myelofibrosis: Follows up with hematology has appointment next Sunday. # DVT prophylaxis: Heparin A [facility] Hospitalist Romina CASAREZ, I+O Romina CASAREZ I+O Laboratory Tests 04/03/20 03:22 04/03/20 06:46 Vital Signs Date Time Temp Pulse Resp B/P (MAP) Pulse Ox O2 Delivery O2 Flow Rate FiO2 04/03/20 06:00 98.2 71 18 169/70 (103) 98 Room Air I&O- Last 24 Hours up to 6 AM 04/03/20 06:00 Intake Total 900 ml Balance 900 ml DIANA LIND MD Apr 03, 2020 11:08
[2020-04-03] MEDS ORDERED: LISI-538 PO (11:10)
[2020-04-03] MEDS ORDERED: HYDR12CA PO (11:10)
[2020-04-03] MEDS ORDERED: PANTOPRAZOLE 40MG TAB (PROTONIX) PO SCH (15:00)
== END 2020-04-03 13:08 | disposition home or self-care (01) ==
LOC: M ED 15:10 → M ED INP 17:42 → ENRESERV 20:28 → M MSPAV 21:45
PROVIDERS: ADMIT Family Medicine; ATTEND Family Medicine
DX: D47.3 Essential (hemorrhagic) thrombocythemia (principal); D61.09 Other constitutional aplastic anemia; D75.81 Myelofibrosis; F44.4 Conversion disorder with motor symptom or deficit; I10 Essential (primary) hypertension; K21.9 Gastro-esophageal reflux disease without esophagitis; Z79.899 Other long term (current) drug therapy
CPT/HCPCS: 36415; 36430; 80053; 85025; 85027; 85610; 86850; 86900; 86901; 86920; 96374; 99284; G0378; J1200; P9040

== ENCOUNTER → 2020-04-02 | Outpatient (CLI) | payer MEDICARE ==
[2020-04-02 13:15] LABS: HEMATOCRIT 24.8 % (36.0-47.0); HEMOGLOBIN 7.6 g/dl (12.0-15.5); MEAN CORPUSCULAR HEMOGLOBIN 29.2 pg (27.0-33.0); MEAN CORPUSCULAR HGB CONC 30.6 g/dl (32.0-36.5); MEAN CORPUSCULAR VOLUME 95.4 fl (80.0-96.0); PLATELET COUNT, AUTOMATED 412 10^3/uL (150-450); WHITE BLOOD COUNT 4.5 10^3/uL (4.0-10.0)
[2020-04-02 13:46] LABS: ALBUMIN 3.7 GM/DL (3.2-5.2); BILIRUBIN,TOTAL 0.5 MG/DL (0.2-1.0); CALCIUM LEVEL 8.7 MG/DL (8.8-10.2); CREATININE FOR GFR 1.15 MG/DL (0.55-1.30); GLOMERULAR FILTRATION RATE 49.7 (>39); POTASSIUM SERUM 4.3 MEQ/L (3.5-5.1); TOTAL PROTEIN 6.9 GM/DL (6.4-8.2)
[2020-04-02 13:55] LABS: ANISOCYTOSIS 2+; ATYPICAL LYMPH 8 % (0-5); BLAST CELLS 7 % (0-0); LYMPHOCYTES 32 % (16-44); METAMYELOCYTES 1 % (0-0); MONOCYTES 1 % (0-5); MYELOCYTES 4 % (0-0); NEUTROPHILS 44 % (28-66); PLATELET ESTIMATE NORMAL (NORMAL); POIKILOCYTOSIS 2+
[2020-04-02 13:56] LABS: OVALOCYTES 1+; POLYCHROMASIA 1+
[2020-04-02 13:57] LABS: TEAR DROP CELLS 1+
== END ==
LOC: M LAB 12:38
PROVIDERS: ATTEND Nurse Practitioner Adult Health
DX: D47.3 Essential (hemorrhagic) thrombocythemia (principal); D61.09 Other constitutional aplastic anemia

== ENCOUNTER → 2020-07-20 | Outpatient (REF) | payer MEDICARE ==
[~2020-07-20] MED LIST changes: +ARAN200I3 IV; +HYDR12CA PO; +LISI-538 PO; +LOPE1CAP5 PO
[2020-07-20 16:15] LABS: PERCENT SATURATION 25.7 % (13.2-45.0)
[2020-07-20 20:24] LABS: ATYPICAL LYMPH 14 % (0-5); BASOPHILS 2 % (0-1); BLAST CELLS 4 % (0-0); LYMPHOCYTES 15 % (16-44); MONOCYTES 11 % (0-5); MYELOCYTES 5 % (0-0); NEUTROPHILS 37 % (28-66); PLATELET ESTIMATE NORMAL (NORMAL); PROMYELOCYTES 1 % (0-0)
[2020-07-20 20:25] LABS: ANISOCYTOSIS 1+
[2020-07-20 20:26] LABS: POIKILOCYTOSIS 2+
[2020-07-20 20:27] LABS: TEAR DROP CELLS 1+
[2020-07-20 20:28] LABS: OVALOCYTES 1+
== END ==
LOC: M LAB REF 12:37
PROVIDERS: ATTEND Internal Medicine
DX: D64.9 Anemia, unspecified (principal); D75.81 Myelofibrosis; D47.3 Essential (hemorrhagic) thrombocythemia

== ENCOUNTER → 2021-01-24 | Outpatient (REF) | payer MEDICARE ==
[~2021-01-24] MED LIST changes: +BIOT10009 PO; +COVI100V IM; -LISI-538 PO; +LISI10TA22 PO; -LISI10TA4 PO; +LISI20TA33 PO; +NEXI20CA33 PO
[2021-01-24 18:19] LABS: PERCENT SATURATION 14.9 % (13.2-45.0)
== END ==
LOC: M LAB REF 16:14
PROVIDERS: ATTEND Internal Medicine
DX: D64.9 Anemia, unspecified (principal); R19.7 Diarrhea, unspecified

== ENCOUNTER → 2021-02-02 | Outpatient (REF) | payer MEDICARE | LOC: M LAB REF 11:54 | PROVIDERS: ATTEND Internal Medicine | DX: R19.7 Diarrhea, unspecified (principal) ==

== ENCOUNTER 2021-03-05 23:30 | Emergency (ER) | payer MEDICARE ==
[~2021-03-05] VITALS: Ht 172.7 cm; Wt 58.6 kg
[2021-03-05] MEDS ORDERED: LISI10TA22 PO (23:46)
[2021-03-06] MEDS ORDERED: NS 1,000 ML IV SCH (00:30)
[2021-03-06] MEDS ORDERED: MORPHINE 4 MG/ML 1ML VIAL/SYRINGE (J2270) IV ONE (00:30)
[2021-03-06 01:23] LABS: HEMATOCRIT 28.5 % (36.0-47.0); HEMOGLOBIN 8.4 g/dl (12.0-15.5); MEAN CORPUSCULAR HEMOGLOBIN 28.1 pg (27.0-33.0); MEAN CORPUSCULAR HGB CONC 29.5 g/dl (32.0-36.5); MEAN CORPUSCULAR VOLUME 95.3 fl (80.0-96.0); PLATELET COUNT, AUTOMATED 404 10^3/uL (150-450); RED BLOOD COUNT 2.99 10^6/uL (4.00-5.40); WHITE BLOOD COUNT 3.3 10^3/uL (4.0-10.0)
[2021-03-06 01:38] LABS: ALBUMIN 3.5 GM/DL (3.2-5.2); ALT/SGPT 17 U/L (12-78); BILIRUBIN,DIRECT < 0.1 MG/DL (0.0-0.2); BILIRUBIN,TOTAL 0.2 MG/DL (0.2-1.0); BLOOD UREA NITROGEN 27 MG/DL (7-18); CALCIUM LEVEL 8.6 MG/DL (8.8-10.2); CARBON DIOXIDE LEVEL 23 MEQ/L (21-32); CHLORIDE LEVEL 112 MEQ/L (98-107); CREATININE FOR GFR 1.05 MG/DL (0.55-1.30); GLUCOSE, FASTING 107 MG/DL (70-100); LIPASE 173 U/L (73-393); POTASSIUM SERUM 4.1 MEQ/L (3.5-5.1); SODIUM LEVEL 142 MEQ/L (136-145); TOTAL PROTEIN 6.8 GM/DL (6.4-8.2)
[2021-03-06 01:57] LABS: ATYPICAL LYMPH 3 % (0-5); BASOPHILS 2 % (0-1); LYMPHOCYTES 44 % (16-44); METAMYELOCYTES 3 % (0-0); MONOCYTES 6 % (0-5); MYELOCYTES 2 % (0-0); NEUTROPHILS 38 % (28-66); PLATELET ESTIMATE INCREASED (NORMAL)
[2021-03-06 01:58] LABS: OVALOCYTES 1+; TEAR DROP CELLS 2+
--- NOTE | 2021-03-06 02:47 | REPVR ---
PROCEDURE INFORMATION: Exam: CT Abdomen And Pelvis Without Contrast Exam date and time: 03/06/2021 1:23 AM Age: 70 years old Clinical indication: R flank pain. Splenomegaly. TECHNIQUE: Imaging protocol: Computed tomography of the abdomen and pelvis without contrast. Radiation optimization: All CT scans at this facility use at least one of these dose optimization techniques: automated exposure control; mA and/or kV adjustment per patient size (includes targeted exams where dose is matched to clinical indication); or iterative reconstruction. COMPARISON: CT ABD/PEL W/IV ORAL CONTRAS 12/26/2019 12:49 AM FINDINGS: Liver: Normal. No mass. Gallbladder and bile ducts: Normal. No calcified stones. No ductal dilation. Pancreas: Normal. No ductal dilation. Spleen: Moderate splenomegaly. Mildly increased from prior. Adrenal glands: Normal. No mass. Kidneys and ureters: No hydronephrosis. Mild nonspecific right perinephric stranding. No change from prior. Stomach and bowel: Moderate sliding type gastric hiatal hernia. Moderate stool in the colon. No abnormal bowel dilatation. No abnormal bowel wall thickening. Negative for colonic diverticulitis. Appendix: Appendix is normal. Intraperitoneal space: Unremarkable. No free air. No significant fluid collection. Vasculature: Mild calcified atherosclerotic disease. No aortic aneurysm. Lymph nodes: Unremarkable. No enlarged lymph nodes. Urinary bladder: Unremarkable as visualized. Reproductive: Uterus is normal. Bones/joints: Mild degenerative spine. No acute fracture. Soft tissues: Status post bilateral breast implants. There is capsular calcifications. Small epigastric hernia containing fat. No evidence of incarceration. IMPRESSION: 1. No CT findings to suggest source of right flank pain. 2. Moderate sliding type gastric hiatal hernia. No change from prior. 3. Moderate splenomegaly. Mildly increased from prior. 4. Additional findings as described. Electronically signed by: Mulugeta Aguilar On 03/06/2021 02:46:43 AM
[2021-03-06 04:00] VITALS: BP 142/78
--- NOTE | 2021-03-06 08:08 | ED PDOC ---
Post-Departure Follow-Up ct abd/p faxed to dr navarro for fu Liat Gallardo MD Mar 06, 2021 08:08
== END 2021-03-06 04:11 | disposition home or self-care (01) ==
LOC: M ED 23:30
DX: R10.9 Unspecified abdominal pain (principal); I10 Essential (primary) hypertension; K21.9 Gastro-esophageal reflux disease without esophagitis; K44.9 Diaphragmatic hernia without obstruction or gangrene; R16.1 Splenomegaly, not elsewhere classified; Z79.899 Other long term (current) drug therapy; Z88.8 Allergy status to other drugs, medicaments and biological substances
CPT/HCPCS: 74176; 80048; 80076; 81001; 83690; 85025; 93041; 96361; 96374; 99284; J2270

== ENCOUNTER → 2021-03-17 | Outpatient (CLI) | payer MEDICARE ==
--- NOTE | 2021-03-17 10:25 | REP ---
INDICATION: MYLEOPROLIFERITIVE DZ. COMPARISON: None. TECHNIQUE: Transabdominal ultrasound FINDINGS: Multiple ultrasonographic images of the liver show the hepatic parenchymal echo pattern to be within normal limits. There is no intrahepatic or extrahepatic ductal dilatation. The common bile duct measures between 7 and 8 mm. Multiple ultrasonographic images of the gallbladder show no abnormal echogenic foci within the gallbladder lumen, gallbladder wall thickening, or pericholecystic edema. The imaged portion of the pancreas is within normal limits. The spleen measures 16.4 x 15.8 x7.1 cm. The volumetric index calculation is 1840 cc. No perisplenic abnormalities are noted. The right kidney measures 9.2 x 5.1 x 3.9 cm. The renal cortical echotexture is within normal limits. Corticomedullary differentiation is preserved. There is no hydronephrosis. There are no masses. The left kidney measures 9.3 x 4.1 x 4.7 cm. The renal cortical echotexture is within normal limits. Corticomedullary differentiation is preserved. There is no hydronephrosis. There are no masses. The imaged portion of the abdominal aorta is within normal limits. There is no evidence of free fluid. IMPRESSION: Splenomegaly <Electronically signed by Giancarlo Ralph > 03/17/21 1022
== END ==
LOC: M RAD 09:25
PROVIDERS: ATTEND Internal Medicine Hematology & Oncology
DX: D47.1 Chronic myeloproliferative disease (principal); R16.1 Splenomegaly, not elsewhere classified

== ENCOUNTER → 2021-12-19 | Outpatient (REF) | payer MEDICARE ==
[~2021-12-19] MED LIST changes: -D31000TA2 PO; +MIRA3350 PO; +SODI15SS PO; +SODI1POW59 PO; +VITA100093 PO
== END ==
LOC: M LAB REF 12:29
PROVIDERS: ATTEND Internal Medicine
DX: Z01.818 Encounter for other preprocedural examination (principal)

== ENCOUNTER 2022-01-10 13:14 | Outpatient (CLI) | payer MEDICARE ==
[~2022-01-10] VITALS: Ht 172.7 cm; Wt 60.0 kg
[~2022-01-10 13:14] MED LIST changes: +ACETAMINOPHEN TAB 650MG DOSE (2X325MG) PO SCH; +diphenhydrAMINE 25MG CAP PO SCH
[2022-01-10 13:30] VITALS: BP 152/76
[2022-01-10 14:38] VITALS: BP 152/76
[2022-01-10 15:00] VITALS: BP 148/68
[2022-01-10 16:00] VITALS: BP 162/72
[2022-02-07] MEDS ORDERED: [UNRECOGNIZED DRUG - CODE] PO (11:23)
== END 2022-01-10 17:25 | disposition home or self-care (01) ==
LOC: M INFU 13:14
PROVIDERS: ATTEND Specialist
DX: D46.9 Myelodysplastic syndrome, unspecified (principal); Z88.8 Allergy status to other drugs, medicaments and biological substances
CPT/HCPCS: 36415; 36430; 85025; 86850; 86900; 86901; 86920; J0881; P9016

== ENCOUNTER 2022-04-14 20:30 | Emergency (ER) | payer MEDICARE ==
[~2022-04-14 20:30] MED LIST changes: -ACETAMINOPHEN TAB 650MG DOSE (2X325MG) PO SCH; +CEPH500C; +HYDR-3713; +HYDR-3713 OR; +IBUP-1114 PO; -diphenhydrAMINE 25MG CAP PO SCH
[2022-04-14] MEDS ORDERED: PERCOCET 5MG/325MG TAB PO ONE (20:55)
[2022-04-14 21:38] LABS: HEMATOCRIT 27.5 % (36.0-47.0); HEMOGLOBIN 8.2 g/dl (12.0-15.5); MEAN CORPUSCULAR HEMOGLOBIN 28.2 pg (27.0-33.0); MEAN CORPUSCULAR HGB CONC 29.8 g/dl (32.0-36.5); MEAN CORPUSCULAR VOLUME 94.5 fl (80.0-96.0); PLATELET COUNT, AUTOMATED 184 10^3/uL (150-450); RED BLOOD COUNT 2.91 10^6/uL (4.00-5.40); WHITE BLOOD COUNT 3.1 10^3/uL (4.0-10.0)
[2022-04-14 21:42] LABS: ALT/SGPT 15 U/L (12-78); BILIRUBIN,DIRECT 0.2 MG/DL (0.0-0.2); BILIRUBIN,TOTAL 0.5 MG/DL (0.2-1.0); BLOOD UREA NITROGEN 24 MG/DL (7-18); CALCIUM LEVEL 8.4 MG/DL (8.8-10.2); CARBON DIOXIDE LEVEL 24 MEQ/L (21-32); CHLORIDE LEVEL 107 MEQ/L (98-107); CREATININE FOR GFR 0.87 MG/DL (0.55-1.30); GLOMERULAR FILTRATION RATE > 60.0 (>39); GLUCOSE, FASTING 102 MG/DL (70-100); INR 1.18; PARTIAL THROMBOPLASTIN TIME 38.9 SECONDS (25.9-37.0); POTASSIUM SERUM 4.7 MEQ/L (3.5-5.1); PROTHROMBIN TIME 15.4 SECONDS (12.7-14.5); SODIUM LEVEL 138 MEQ/L (136-145)
[2022-04-14 22:33] LABS: ATYPICAL LYMPH 18 % (0-5); BLAST CELLS 4 % (0-0); EOSINOPHILS 1 % (0-3); LYMPHOCYTES 30 % (16-44); METAMYELOCYTES 1 % (0-0); MONOCYTES 8 % (0-5); NEUTROPHILS 36 % (28-66); PLATELET ESTIMATE NORMAL (NORMAL)
[2022-04-14 22:34] LABS: ANISOCYTOSIS 1+; OVALOCYTES 1+; TEAR DROP CELLS 1+
[2022-04-14 22:35] LABS: POIKILOCYTOSIS 1+
[2022-04-15 00:04] VITALS: BP 165/75
== END 2022-04-15 00:06 | disposition home or self-care (01) ==
LOC: M ED 20:30 → EDBD 20:30 → M ED 04-15 00:06
DX: K62.5 Hemorrhage of anus and rectum (principal); T85.43XA Leakage of breast prosthesis and implant, initial encounter; I10 Essential (primary) hypertension; K21.9 Gastro-esophageal reflux disease without esophagitis; K58.9 Irritable bowel syndrome, unspecified; G47.00 Insomnia, unspecified; F32.9 Major depressive disorder, single episode, unspecified; D47.1 Chronic myeloproliferative disease; R16.1 Splenomegaly, not elsewhere classified; Z79.899 Other long term (current) drug therapy; Z88.8 Allergy status to other drugs, medicaments and biological substances

== ENCOUNTER 2022-04-18 14:25 | Inpatient (IN) | payer MEDICARE ==
[~2022-04-18] VITALS: Ht 172.7 cm; Wt 63.4 kg
[~2022-04-18 14:25] MED LIST changes: -AMLO1TAB24 PO; -AMLO1TAB25 PO; -ANAG0.5C2 PO; -ATEN25TA PO; -ATOR1TAB21; -ATOR40TA75 PO; -CLON0.3T PO; -LISI30TA4 PO; -MIRA1POW3 PO; -PERCOCET 5MG/325MG TAB PO ONE; -PERCOCET PO; -SELF1KIT MC; -SENN-52 PO
[2022-04-18 15:02] LABS: HEMOGLOBIN 7.8 g/dl (12.0-15.5); MEAN CORPUSCULAR HEMOGLOBIN 28.1 pg (27.0-33.0); MEAN CORPUSCULAR VOLUME 93.5 fl (80.0-96.0); PLATELET COUNT, AUTOMATED 217 10^3/uL (150-450); RED BLOOD COUNT 2.78 10^6/uL (4.00-5.40); WHITE BLOOD COUNT 2.8 10^3/uL (4.0-10.0)
[2022-04-18 15:44] LABS: ANISOCYTOSIS 1+; ATYPICAL LYMPH 14 % (0-5); BLAST CELLS 7 % (0-0); LYMPHOCYTES 41 % (16-44); METAMYELOCYTES 4 % (0-0); MONOCYTES 5 % (0-5); MYELOCYTES 1 % (0-0); NEUTROPHILS 25 % (28-66); POIKILOCYTOSIS 1+
[2022-04-18] MEDS: MORPHINE 2 MG/ML 1ML VIAL IV PRN ×2 (15:44→15:50)
[2022-04-18 15:45] LABS: OVALOCYTES 1+; PLATELET ESTIMATE NORMAL (NORMAL); TEAR DROP CELLS 1+
[2022-04-18 15:52] LABS: ERYTHROCYTE SEDIMENTATION RATE 79 mm/hr (0-30)
[2022-04-18] MEDS ORDERED: ISOVUE-370 76% 100ML VIAL As Ordered ONE (15:55)
[2022-04-18 16:12] LABS: ALBUMIN 3.1 GM/DL (3.2-5.2); ALT/SGPT 15 U/L (12-78); BILIRUBIN,TOTAL 0.5 MG/DL (0.2-1.0); BLOOD UREA NITROGEN 21 MG/DL (7-18); C REACTIVE PROTEIN QUANTITATIV 0.71 MG/DL (0.00-0.30); CALCIUM LEVEL 8.5 MG/DL (8.8-10.2); CARBON DIOXIDE LEVEL 23 MEQ/L (21-32); CHLORIDE LEVEL 110 MEQ/L (98-107); CREATININE FOR GFR 0.97 MG/DL (0.55-1.30); GLOMERULAR FILTRATION RATE > 60.0 (>39); GLUCOSE, FASTING 117 MG/DL (70-100); POTASSIUM SERUM 4.2 MEQ/L (3.5-5.1); SODIUM LEVEL 139 MEQ/L (136-145); TOTAL PROTEIN 6.8 GM/DL (6.4-8.2)
[2022-04-18] MEDS ORDERED: LIDOCAINE 1% MDV 20ML VIAL SC ONE (16:30)
[2022-04-18] MEDS ORDERED: SODIUM BICARBONATE 8.4% INJ 50 ML SYRINGE IV STA (16:32)
[2022-04-18] MEDS: HYDROMORPHONE HCL 0.5 MG/ 0.5 ML SYRINGE (J1170 PER 1) IV PRN ×2 (16:39→17:37)
[2022-04-18 17:47] VITALS: BP 198/82
[2022-04-18 18:05] VITALS: BP 192/80
[2022-04-18] MEDS ORDERED: HYDROMORPHONE HCL 0.5 MG/ 0.5 ML SYRINGE (J1170 PER 1) IV PRN ×3 (18:20→20:30)
[2022-04-18] MEDS ORDERED: HYDROMORPHONE HCL 0.5 MG/ 0.5 ML SYRINGE (J1170 PER 1) IV ONE ×2 (18:20→18:40)
[2022-04-18] MEDS ORDERED: AMLO1TAB24 PO (18:22)
[2022-04-18] MEDS ORDERED: ATOR1TAB21 (18:22)
[2022-04-18 18:23] LABS: RSV AMPLIFICATION NEGATIVE (NEGATIVE)
[2022-04-18] MEDS ORDERED: METOPROLOL 5 MG/5 ML VIAL IV STA (18:37)
[2022-04-18] MEDS ORDERED: ANAG0.5C2 PO (18:39)
[2022-04-18] MEDS ORDERED: ATOR40TA75 PO (18:39)
[2022-04-18] MEDS ORDERED: LOPE1CAP5 PO (18:40)
[2022-04-18] MEDS ORDERED: HOME MED LIST COMPLETE! XX SCH (18:40)
[2022-04-18 18:55] VITALS: BP 188/80
[2022-04-18 19:03] LABS: PARTIAL THROMBOPLASTIN TIME 32.4 SECONDS (24.8-34.2)
[2022-04-18] MEDS ORDERED: ACETAMINOPHEN 1000MG 100ML IV BTL (OFIRMEV) (J0131 PER 10MG) IV ONE (19:05)
[2022-04-18 19:06] LABS: INR 1.09; PROTHROMBIN TIME 14.3 SECONDS (12.5-14.5)
[2022-04-18] MEDS ORDERED: D5W/0.45% SODIUM CHLORIDE 1,000 ML IV SCH (19:25)
[2022-04-18] MEDS ORDERED: GLUCAGON INJ 1MG VIAL SC PRN (19:25)
[2022-04-18] MEDS ORDERED: GLUCOSE 4GM CHEW TABLET PO PRN (19:25)
[2022-04-18] MEDS ORDERED: DEXTROSE 50% 50 ML SYRINGE IV PRN (19:25)
[2022-04-18] MEDS ORDERED: METOPROLOL 5 MG/5 ML VIAL IV SCH (19:30)
[2022-04-18] MEDS ORDERED: LABETALOL 100MG/20ML VIAL IV ONE (19:45)
[2022-04-18 20:01] VITALS: BP 220/85
[2022-04-18] MEDS ORDERED: BUPIVACAINE HCL 0.25% 30ML VIAL As Ordered ONE (20:10)
[2022-04-18] MEDS ORDERED: LIDOCAINE 1% SDV 30ML VIAL As Ordered ONE (20:10)
[2022-04-18 20:50] VITALS: BP 145/75
[2022-04-18] MEDS ORDERED: ceFAZolin 2 GM/D5W 50 ML IV BAG (J0690 PER 500MG) As Ordered ONE (21:27)
[2022-04-18] MEDS ORDERED: MIDAZOLAM INJ 2MG/2ML VIAL (J2250 PER 1MG) As Ordered ONE (21:35)
[2022-04-18] MEDS ORDERED: LIDOCAINE 2% 100MG/5ML SDV (FOR ANES.) As Ordered ONE (21:35)
[2022-04-18] MEDS ORDERED: fentaNYL 100 MCG/2 ML INJECTION As Ordered ONE (21:35)
[2022-04-18] MEDS ORDERED: ONDANSETRON 4MG 2ML VIAL As Ordered ONE (21:35)
[2022-04-18] MEDS ORDERED: propofoL 200 MG/20 ML VIAL As Ordered ONE (21:35)
[2022-04-18] MEDS ORDERED: dexameTHASONE 4 MG/ML 1ML VIAL (J1100 PER 1MG) As Ordered ONE (21:35)
[2022-04-18] MEDS ORDERED: ACETAMINOPHEN 1000MG 100ML IV BTL (OFIRMEV) (J0131 PER 10MG) As Ordered ONE (22:34)
[2022-04-18] MEDS ORDERED: ePHEDrine SULFATE 25 MG/5 ML(5MG/ML) SYRINGE As Ordered ONE (22:36)
[2022-04-18] MEDS ORDERED: LR 1,000 ML IV SCH (23:25)
[2022-04-18] MEDS ORDERED: ONDANSETRON 4MG 2ML VIAL IV PRN (23:25)
[2022-04-18] MEDS ORDERED: oxyCODONE 5MG TAB PO PRN (23:25)
[2022-04-18] MEDS ORDERED: MORPHINE 2 MG/ML 1ML VIAL IV PRN (23:25)
[2022-04-18] MEDS: LABETALOL 100MG/20ML VIAL IV PRN ×2 (23:44→23:50)
[2022-04-18] MEDS: fentaNYL 100 MCG/2 ML INJECTION IV PRN (23:57)
[2022-04-19] VITALS (29 sets, daily range): BP systolic 125–190; BP diastolic 60–80; O2SAT 94–100
[2022-04-19] MEDS: LABETALOL 100MG/20ML VIAL IV PRN (00:01)
[2022-04-19] MEDS: fentaNYL 100 MCG/2 ML INJECTION IV PRN ×3 (00:02→00:16)
[2022-04-19] MEDS ORDERED: hydrALAZINE 20MG/ML 1ML VIAL (J0360 PER 20MG) IV ONE (00:55)
[2022-04-19] MEDS: NITROGLYCERIN 2% OINT 1 GM *U/D* PKT TOP SCH ×2 (01:02→08:36)
[2022-04-19 01:54] LABS: HEMATOCRIT 29.1 % (36.0-47.0); HEMOGLOBIN 8.7 g/dl (12.0-15.5)
[2022-04-19] MEDS: ceFAZolin SOD 2 GM in IV 1 EA IV SCH ×2 (05:12→14:03)
[2022-04-19 05:58] LABS: HEMATOCRIT 29.1 % (36.0-47.0); HEMOGLOBIN 8.7 g/dl (12.0-15.5); MEAN CORPUSCULAR HGB CONC 29.9 g/dl (32.0-36.5); PLATELET COUNT, AUTOMATED 186 10^3/uL (150-450); WHITE BLOOD COUNT 2.1 10^3/uL (4.0-10.0)
[2022-04-19 06:21] LABS: CALCIUM LEVEL 8.4 MG/DL (8.8-10.2); CREATININE FOR GFR 1.14 MG/DL (0.55-1.30); GLOMERULAR FILTRATION RATE 49.9 (>39); POTASSIUM SERUM 3.9 MEQ/L (3.5-5.1)
[2022-04-19] MEDS ORDERED: atenoloL 25 MG TAB PO ONE (10:00)
[2022-04-19] MEDS ORDERED: NALOXONE INJ 0.4MG/1ML VIAL (J2310 PER 1MG) IV PRN (10:05)
[2022-04-19] MEDS ORDERED: PERCOCET 5MG/325MG TAB PO ONE (11:30)
[2022-04-19] MEDS ORDERED: amLODIPine 5 MG TAB PO ONE (12:00)
[2022-04-19] MEDS ORDERED: KETOROLAC 30 MG/ML 1ML VIAL IV ONE ×2 (12:30→17:25)
[2022-04-19] MEDS ORDERED: cloNIDine 0.1MG TABLET PO ONE ×2 (12:30→17:25)
[2022-04-19] MEDS ORDERED: PERCOCET 5MG/325MG TAB PO PRN (15:00)
[2022-04-19] MEDS ORDERED: FLUBLOK(EGG FREE)(QUAD)INFLUENZA VACC 0.5ML SYRINGE 18YRS & OLDER IM.IMMUN ONE (16:00)
[2022-04-19] MEDS ORDERED: GI COCKTAIL 50ML BTL(HYOSCYAMINE/MAALOX/LIDOCAINE VISCOUS)(1:3:1) PO ONE (17:25)
[2022-04-19] MEDS ORDERED: GI COCKTAIL 50ML BTL(HYOSCYAMINE/MAALOX/LIDOCAINE VISCOUS)(1:3:1) PO PRN (17:25)
[2022-04-19] MEDS ORDERED: amLODIPine 5 MG TAB PO SCH (21:00)
[2022-04-20] VITALS (10 sets, daily range): BP systolic 132–180; BP diastolic 62–88; O2SAT 95
[2022-04-20 06:08] LABS: HEMATOCRIT 24.7 % (36.0-47.0); HEMOGLOBIN 7.5 g/dl (12.0-15.5); MEAN CORPUSCULAR HEMOGLOBIN 29.1 pg (27.0-33.0); MEAN CORPUSCULAR HGB CONC 30.4 g/dl (32.0-36.5); MEAN CORPUSCULAR VOLUME 95.7 fl (80.0-96.0); PLATELET COUNT, AUTOMATED 147 10^3/uL (150-450); RED BLOOD COUNT 2.58 10^6/uL (4.00-5.40)
[2022-04-20 06:45] LABS: CREATININE FOR GFR 1.01 MG/DL (0.55-1.30); GLOMERULAR FILTRATION RATE 57.4 (>39); POTASSIUM SERUM 4.5 MEQ/L (3.5-5.1)
[2022-04-20] MEDS ORDERED: MIRALAX *UNIT DOSE* 17GM PACKET PO SCH (09:00)
[2022-04-20] MEDS ORDERED: atenoloL 25 MG TAB PO SCH (09:00)
[2022-04-20] MEDS ORDERED: PARoxetine 10MG TABLET PO SCH (09:00)
[2022-04-20] MEDS ORDERED: SENOKOT S TAB PO SCH (09:00)
[2022-04-20 09:43] LABS: HEMATOCRIT 27.8 % (36.0-47.0); HEMOGLOBIN 8.2 g/dl (12.0-15.5)
[2022-04-20] MEDS ORDERED: AMLO1TAB25 PO (11:02)
[2022-04-20] MEDS ORDERED: MIRA1POW3 PO (11:02)
[2022-04-20] MEDS ORDERED: SENN-52 PO (11:02)
[2022-04-20] MEDS ORDERED: PERCOCET PO (11:02)
[2022-04-20] MEDS ORDERED: ATEN25TA PO (11:02)
[2022-04-20] MEDS ORDERED: LISI30TA4 PO (11:05)
[2022-04-20] MEDS ORDERED: SELF1KIT MC (11:05)
[2022-04-20] MEDS ORDERED: cloNIDine 0.1MG TABLET PO ONE (15:30)
[2022-04-20] MEDS ORDERED: CLON0.3T PO (15:31)
[2022-04-20] MEDS ORDERED: ALPRAZolam 0.5 MG TAB PO ONE (17:30)
[2022-04-20] MEDS ORDERED: ATORVASTATIN 20 MG TAB PO SCH (21:00)
[2022-04-20] MEDS ORDERED: zolPIDEM TARTRATE 5 MG TAB PO SCH (21:00)
== END 2022-04-20 17:45 | disposition home health service (06) | DRG 584 ==
LOC: M ED 14:25 → M ED INP 17:54 → M PCU 04-19 00:25 → M MS5PR 04-20 07:15
PROVIDERS: ADMIT General Practice; ATTEND General Practice
PROC: 0HCU0ZZ Extirpation of Matter from Left Breast, Open Approach (ICD-10-PCS; 2022-04-18)
PROC: B246ZZZ Ultrasonography of Right and Left Heart (ICD-10-PCS; 2022-04-18)
PROC: 30233N1 Transfusion of Nonautologous Red Blood Cells into Peripheral Vein, Percutaneous Approach (ICD-10-PCS; 2022-04-18)
PROC: 0HBU3ZX Excision of Left Breast, Percutaneous Approach, Diagnostic (ICD-10-PCS; 2022-04-18)
PROC: 0HPU0YZ Removal of Other Device from Left Breast, Open Approach (ICD-10-PCS; principal; 2022-04-18 21:00)
DX: T85.43XA Leakage of breast prosthesis and implant, initial encounter (principal); I31.39 Other pericardial effusion (noninflammatory); D47.1 Chronic myeloproliferative disease; D62 Acute posthemorrhagic anemia; D47.3 Essential (hemorrhagic) thrombocythemia; I10 Essential (primary) hypertension; K21.9 Gastro-esophageal reflux disease without esophagitis; F32.A Depression, unspecified; G47.00 Insomnia, unspecified; K58.9 Irritable bowel syndrome, unspecified; R16.1 Splenomegaly, not elsewhere classified; Z20.822 Contact with and (suspected) exposure to COVID-19; Z79.899 Other long term (current) drug therapy; Z88.8 Allergy status to other drugs, medicaments and biological substances; I73.9 Peripheral vascular disease, unspecified; Z95.828 Presence of other vascular implants and grafts; I16.0 Hypertensive urgency; K44.9 Diaphragmatic hernia without obstruction or gangrene; M41.9 Scoliosis, unspecified; I25.10 Atherosclerotic heart disease of native coronary artery without angina pectoris; I70.1 Atherosclerosis of renal artery; Z98.82 Breast implant status

== ENCOUNTER → 2022-04-18 | Outpatient (CLI) | payer MEDICARE ==
[~2022-04-18] VITALS: Ht 172.7 cm; Wt 60.8 kg
[~2022-04-18] MED LIST changes: +AMLO1TAB24 PO; +AMLO1TAB25 PO; +ANAG0.5C2 PO; +ATEN25TA PO; +ATOR1TAB21; +ATOR40TA75 PO; +CLON0.3T PO; +LISI30TA4 PO; +MIRA1POW3 PO; +PERCOCET 5MG/325MG TAB PO ONE; +PERCOCET PO; +SELF1KIT MC; +SENN-52 PO
[2022-04-18 12:40] VITALS: BP 188/82
== END ==
LOC: M INFU 12:48
PROVIDERS: ATTEND Internal Medicine Medical Oncology
DX: Z53.8 Procedure and treatment not carried out for other reasons (principal); D47.1 Chronic myeloproliferative disease; Z88.8 Allergy status to other drugs, medicaments and biological substances

== ENCOUNTER → 2022-05-30 | Outpatient (CLI) | payer MEDICARE ==
[~2022-05-30] MED LIST changes: +AMLO1TAB24 PO; +AMLO1TAB25 PO; +ANAG0.5C2 PO; +ATEN25TA PO; +ATOR1TAB21; +ATOR40TA75 PO; +CLON0.3T PO; +LISI30TA4 PO; +MIRA1POW3 PO; +PERCOCET PO; +SELF1KIT MC; +SENN-52 PO
== END ==
LOC: M WHC 09:54
PROVIDERS: ATTEND Surgery
DX: T85.49XA Other mechanical complication of breast prosthesis and implant, initial encounter (principal); Y83.1 Surgical operation with implant of artificial internal device as the cause of abnormal reaction of the patient, or of later complication, without mention of misadventure at the time of the procedure
CPT/HCPCS: 77066; G0279

== ENCOUNTER → 2022-09-05 | Outpatient (REF) | payer MEDICARE ==
[~2022-09-05] MED LIST changes: +FERR325T3 PO
[2022-09-05 14:02] LABS: ALBUMIN 3.1 G/DL (3.2-5.2); ALKALINE PHOSPHATASE 76 U/L (46-116); ALT/SGPT 30 U/L (7.0-40); AST/SGOT 42 U/L (<34); BILIRUBIN,TOTAL 0.4 MG/DL (0.3-1.2); BLOOD UREA NITROGEN 33 MG/DL (9-23); CALCIUM LEVEL 8.5 MG/DL (8.3-10.6); CARBON DIOXIDE LEVEL 24 MMOL/L (20-31); CHLORIDE LEVEL 106 MMOL/L (98-107); CHOLESTEROL LEVEL 112 MG/DL (<200); CHOLESTEROL RISK RATIO 2.99 (<5); CREATININE FOR GFR 0.93 MG/DL (0.55-1.30); GLOMERULAR FILTRATION RATE > 60.0 (>39); GLUCOSE, FASTING 78 MG/DL (74-106); HDL CHOLESTEROL 37.4 MG/DL (>40); NON-HDL-C 75 MG/DL; POTASSIUM SERUM 4.9 MMOL/L (3.5-5.1); SODIUM LEVEL 136 MMOL/L (136-145)
[2022-09-05 15:33] LABS: LDL CHOLESTEROL 43.6 MG/DL (<100); TOTAL PROTEIN 6.4 G/DL (5.7-8.2); TRIGLYCERIDES LEVEL 155 MG/DL (<150)
== END ==
LOC: M LAB REF 13:07
PROVIDERS: ATTEND Internal Medicine
DX: E78.00 Pure hypercholesterolemia, unspecified (principal)

== ENCOUNTER → 2022-09-07 | Outpatient (CLI) | payer MEDICARE ==
[~2022-09-07] MED LIST changes: +ISOVUE-370 76% 100ML VIAL As Ordered ONE
== END ==
LOC: M RAD 07:22
PROVIDERS: ATTEND Internal Medicine
DX: I73.9 Peripheral vascular disease, unspecified (principal); Z95.828 Presence of other vascular implants and grafts; R16.2 Hepatomegaly with splenomegaly, not elsewhere classified; Z98.82 Breast implant status

== ENCOUNTER → 2022-10-17 | Outpatient (CLI) | payer MEDICARE ==
[~2022-10-17] MED LIST changes: -ISOVUE-370 76% 100ML VIAL As Ordered ONE
== END ==
LOC: M RAD 14:29
PROVIDERS: ATTEND Plastic Surgery Surgery of the Hand
DX: T85.44XA Capsular contracture of breast implant, initial encounter (principal)

== ENCOUNTER → 2022-10-27 | Outpatient (REF) | payer MEDICARE ==
[2022-10-27 17:54] LABS: LYMPHOCYTES 27 % (16-44); METAMYELOCYTES 3 % (0-0); MONOCYTES 6 % (0-5); MYELOCYTES 2 % (0-0); NEUTROPHILS 33 % (28-66)
[2022-10-27 18:02] LABS: PLATELET ESTIMATE NORMAL (NORMAL); TEAR DROP CELLS 4+
[2022-10-27 18:04] LABS: ANISOCYTOSIS 1+; OVALOCYTES 3+
[2022-10-27 18:17] LABS: POLYCHROMASIA 1+
[2022-10-27 18:38] LABS: ATYPICAL LYMPH 9 % (0-5); BLAST CELLS 11 % (0-0)
== END ==
LOC: M LAB REF 16:23
PROVIDERS: ATTEND Internal Medicine
DX: D72.89 Other specified disorders of white blood cells (principal)

== ENCOUNTER 2022-11-21 09:43 | Observation (INO) | payer MEDICARE ==
[2022-11-21] VITALS (7 sets, daily range): BP systolic 140–162; BP diastolic 60–73
[~2022-11-21] VITALS: Ht 172.7 cm; Wt 53.8 kg
[~2022-11-21 09:43] MED LIST changes: +LIDOCAINE 2% 100MG/5ML SDV (FOR ANES.) As Ordered ONE; +MIDAZOLAM INJ 2MG/2ML VIAL As Ordered ONE; +ROCURONIUM BROMIDE 50MG/5ML VIAL As Ordered ONE; +ceFAZolin SOD 2 GM in IV 1 EA IV ONE; +fentaNYL 100 MCG/2 ML INJECTION As Ordered ONE; +propofoL 200 MG/20 ML VIAL As Ordered ONE
[2022-11-21] MEDS ORDERED: LR 1,000 ML IV SCH (10:15)
[2022-11-21] MEDS ORDERED: GENTAMICIN SULF 80MG/2ML VIAL As Ordered ONE (11:23)
[2022-11-21] MEDS ORDERED: BUPIVACAINE HCL 0.25% 10ML VIAL As Ordered ONE (11:23)
[2022-11-21] MEDS ORDERED: BUPIVACAINE LIPOSOME/PF 1.3% 20ML VIAL (13.3MG/ML)(EXPAREL) As Ordered ONE (11:24)
[2022-11-21] MEDS ORDERED: HYDROmorphone HCL 2MG/ML 1ML VIAL As Ordered ONE (12:47)
[2022-11-21] MEDS ORDERED: ONDANSETRON 4MG 2ML VIAL As Ordered ONE (12:49)
[2022-11-21] MEDS ORDERED: ACETAMINOPHEN 1000MG 100ML IV BAG As Ordered ONE (12:49)
[2022-11-21] MEDS ORDERED: ROCURONIUM BROMIDE 50MG/5ML VIAL As Ordered ONE (12:51)
[2022-11-21] MEDS ORDERED: ePHEDrine SULFATE 25 MG/5 ML(5MG/ML) SYRINGE As Ordered ONE (13:06)
[2022-11-21] MEDS ORDERED: PHENYLephrine 500MCG 5ML (100MCG/ML) SYRINGE As Ordered ONE (13:07)
[2022-11-21] MEDS ORDERED: ESMOLOL INJ 100MG/10ML VIAL As Ordered ONE (14:29)
[2022-11-21] MEDS ORDERED: ONDANSETRON 4MG 2ML VIAL IV PRN ×2 (15:30→15:50)
[2022-11-21] MEDS ORDERED: oxyCODONE 5MG TAB PO PRN (15:30)
[2022-11-21] MEDS ORDERED: MORPHINE 2 MG/ML 1ML VIAL IV PRN (15:30)
[2022-11-21] MEDS ORDERED: hydrALAZINE 20MG/ML 1ML VIAL As Ordered ONE (15:34)
[2022-11-21] MEDS ORDERED: LABETALOL 100MG/20ML VIAL As Ordered ONE (15:48)
[2022-11-21] MEDS ORDERED: LABETALOL 100MG/20ML VIAL IV PRN (15:50)
[2022-11-21] MEDS ORDERED: ACETAMINOPHEN TAB 650MG DOSE (2X325MG) PO PRN (15:50)
[2022-11-21] MEDS: LR 1,000 ML IV SCH (16:05)
[2022-11-21] MEDS: fentaNYL 100 MCG/2 ML INJECTION IV PRN ×3 (16:06→16:26)
[2022-11-21] MEDS: traMADol 50 MG TAB PO PRN (17:38)
[2022-11-21] MEDS: ceFAZolin SOD 1 GM in D5W MINI-BAG PLUS 50 ML IV SCH (20:51)
[2022-11-21] MEDS: PERCOCET 5MG/325MG TAB PO PRN (20:54)
[2022-11-21] MEDS ORDERED: zolPIDEM TARTRATE 5 MG TAB PO SCH (21:00)
[2022-11-21] MEDS ORDERED: ATORVASTATIN 20 MG TAB PO SCH (21:00)
[2022-11-22] MEDS ORDERED: MORPHINE 2 MG/ML 1ML VIAL IV ONE
[2022-11-22 01:51] VITALS: BP 172/84
[2022-11-22] MEDS: traMADol 50 MG TAB PO PRN ×2 (01:59→08:20)
[2022-11-22] MEDS ORDERED: amLODIPine 5 MG TAB PO ONE (02:00)
[2022-11-22] MEDS: ceFAZolin SOD 1 GM in D5W MINI-BAG PLUS 50 ML IV SCH ×2 (04:20→13:27)
[2022-11-22] MEDS: PERCOCET 5MG/325MG TAB PO PRN ×2 (04:21→13:28)
[2022-11-22] MEDS: LR 1,000 ML IV SCH (04:52)
[2022-11-22 06:20] VITALS: BP 172/60
[2022-11-22 08:27] VITALS: BP 152/66
[2022-11-22] MEDS ORDERED: PARoxetine 10MG TABLET PO SCH (09:00)
[2022-11-22] MEDS ORDERED: amLODIPine 5 MG TAB PO SCH (09:00)
[2022-11-22 10:00] VITALS: BP 140/68
[2022-11-22] MEDS ORDERED: TRAM50TA2 PO (11:22)
[2022-11-22 14:00] VITALS: BP 138/68
== END 2022-11-22 14:50 | disposition home or self-care (01) ==
LOC: M SDC 09:43 → M MS5PR 09:44
PROVIDERS: ADMIT Plastic Surgery Surgery of the Hand; ATTEND Plastic Surgery Surgery of the Hand
DX: T85.44XA Capsular contracture of breast implant, initial encounter (principal); N64.81 Ptosis of breast; J30.2 Other seasonal allergic rhinitis; I10 Essential (primary) hypertension; I73.9 Peripheral vascular disease, unspecified; Z87.891 Personal history of nicotine dependence; M81.0 Age-related osteoporosis without current pathological fracture; K21.9 Gastro-esophageal reflux disease without esophagitis; D64.9 Anemia, unspecified; F32.A Depression, unspecified; Z79.899 Other long term (current) drug therapy
CPT/HCPCS: 19371; 19380; 88302; 96365; 96366; 96375; C9290; G0378; J0131; J0360; J0690; J1100; J1170; J1580; J2250; J2370; J2405; J3010

== ENCOUNTER 2023-03-19 08:10 | Day surgery (SDC) | payer MEDICARE ==
[~2023-03-19] VITALS: Ht 172.7 cm; Wt 52.3 kg
[~2023-03-19 08:10] MED LIST changes: +ATOR1TAB21 PO; +BAYE81TA7 PO; +ESOM40CA35 PO; -LIDOCAINE 2% 100MG/5ML SDV (FOR ANES.) As Ordered ONE; -MIDAZOLAM INJ 2MG/2ML VIAL As Ordered ONE; +NS 1,000 ML IV ONE; -ROCURONIUM BROMIDE 50MG/5ML VIAL As Ordered ONE; +TRAM50TA2 PO; -ceFAZolin SOD 2 GM in IV 1 EA IV ONE; -fentaNYL 100 MCG/2 ML INJECTION As Ordered ONE; -propofoL 200 MG/20 ML VIAL As Ordered ONE
[2023-03-19] MEDS ORDERED: LIDOCAINE 2% 100MG/5ML SDV (FOR ANES.) As Ordered ONE (09:39)
[2023-03-19] MEDS ORDERED: propofoL 200 MG/20 ML VIAL As Ordered ONE ×2 (09:39→09:57)
[2023-03-19] MEDS ORDERED: fentaNYL 100 MCG/2 ML INJECTION As Ordered ONE (09:42)
[2023-03-19 10:35] VITALS: TEMP 97.6
[2023-03-19 10:56] VITALS: BP 151/72; O2SAT 95
== END 2023-03-19 11:09 | disposition home or self-care (01) ==
LOC: M OPP 08:10
PROVIDERS: ATTEND Internal Medicine Gastroenterology
DX: K64.0 First degree hemorrhoids (principal); K57.30 Diverticulosis of large intestine without perforation or abscess without bleeding; Z86.010 Personal history of colon polyps; K44.9 Diaphragmatic hernia without obstruction or gangrene; D50.9 Iron deficiency anemia, unspecified; R13.10 Dysphagia, unspecified; R12 Heartburn
CPT/HCPCS: 43249; 45378; 88305; J3010

== ENCOUNTER 2023-05-13 03:26 | Observation (INO) | payer MEDICARE ==
[~2023-05-13] VITALS: Ht 172.7 cm; Wt 52.3 kg
[~2023-05-13 03:26] MED LIST changes: -NS 1,000 ML IV ONE; +OLAN2.5T25 PO; +ONDA4TAB6 PO
[2023-05-13] MEDS ORDERED: ONDANSETRON 4MG 2ML VIAL IV ONE (04:10)
[2023-05-13] MEDS ORDERED: MORPHINE 4 MG/ML 1ML VIAL IV ONE (04:10)
[2023-05-13 04:22] LABS: LIPASE 34 U/L (12-53)
[2023-05-13 04:24] LABS: ALBUMIN 2.4 G/DL (3.2-5.2); ALKALINE PHOSPHATASE 74 U/L (46-116); ALT/SGPT < 9 U/L (7.0-40); AST/SGOT 43 U/L (<34); BILIRUBIN,DIRECT 0.1 MG/DL (<0.4); BILIRUBIN,TOTAL 0.4 MG/DL (0.3-1.2); BLOOD UREA NITROGEN 26 MG/DL (9-23); CALCIUM LEVEL 7.5 MG/DL (8.3-10.6); CARBON DIOXIDE LEVEL 23 MMOL/L (20-31); CHLORIDE LEVEL 109 MMOL/L (98-107); CREATININE FOR GFR 1.29 MG/DL (0.55-1.30); GLOMERULAR FILTRATION RATE 43.1 (>39); GLUCOSE, FASTING 112 MG/DL (74-106); POTASSIUM SERUM 4.1 MMOL/L (3.5-5.1); SODIUM LEVEL 140 MMOL/L (136-145); TOTAL PROTEIN 5.6 G/DL (5.7-8.2)
[2023-05-13] MEDS ORDERED: hydrALAZINE 20MG/ML 1ML VIAL IV ONE ×2 (04:50→07:00)
[2023-05-13 05:01] LABS: HEMATOCRIT 26.7 % (36.0-47.0); LYMPH # 0.8 10^3/uL (1.5-5.0); LYMPH % 22.4 % (24.0-44.0); MEAN CORPUSCULAR HEMOGLOBIN 27.3 pg (27.0-33.0); MEAN CORPUSCULAR VOLUME 91.1 fl (80.0-96.0); MONO # 1.2 10^3/uL (0.0-0.8); MONO % 33.3 % (2.0-8.0); NEUTROPHILS % 29.6 % (36.0-66.0); PLATELET COUNT, AUTOMATED 187 10^3/uL (150-450); RED BLOOD COUNT 2.93 10^6/uL (4.00-5.40); WHITE BLOOD COUNT 3.5 10^3/uL (4.0-10.0)
[2023-05-13 06:06] LABS: CK-MB VALUE MASS < 1.0 NG/ML (<3.6)
[2023-05-13 06:07] LABS: CPK CREATINE PHOSPHOKINASE 42 U/L (34-145); MB/CK RELATIVE INDEX 2.38 (< OR =4)
[2023-05-13] MEDS ORDERED: ISOVUE-370 76% 100ML VIAL As Ordered ONE (06:20)
[2023-05-13] MEDS ORDERED: NORCO, ANEXSIA 5/325MG TABLET (HYDROcodone/ACETAMINOPHEN) PO ONE (10:25)
[2023-05-13] MEDS ORDERED: ONDANSETRON 4MG TAB PO ONE (10:25)
[2023-05-13] MEDS ORDERED: MED REC IN PROGRESS XX SCH (14:25)
[2023-05-13] MEDS ORDERED: MAALOX 30 ML SUSP *UDC PO PRN (15:05)
[2023-05-13] MEDS ORDERED: MAGIC MOUTHWASH SUSPENSION BTL SS PRN (15:05)
[2023-05-13] MEDS ORDERED: ACETAMINOPHEN TAB 650MG DOSE (2X325MG) PO PRN (15:05)
[2023-05-13] MEDS ORDERED: MOM 30ML SUSPENSION UDC PO PRN (15:05)
[2023-05-13] MEDS ORDERED: ONDA4TAB6 PO (15:37)
[2023-05-13] MEDS ORDERED: OLAN2.5T25 PO (15:37)
[2023-05-13] MEDS ORDERED: ANAG0.5C2 PO (15:37)
[2023-05-13] MEDS ORDERED: HOME MED LIST COMPLETE! XX SCH (15:45)
[2023-05-13 15:57] VITALS: BP 191/91; TEMP 98.6; O2SAT 93
[2023-05-13] MEDS: hydrALAZINE 20MG/ML 1ML VIAL IV SCH ×2 (16:10→22:09)
[2023-05-13] MEDS: NORCO, ANEXSIA 5/325MG TABLET (HYDROcodone/ACETAMINOPHEN) PO PRN (16:31)
[2023-05-13] MEDS: PROMETHAZINE 25MG/ML 1ML VIAL IV PRN (16:31)
[2023-05-13 19:35] VITALS: BP 170/72; TEMP 98.4; O2SAT 93
[2023-05-13] MEDS: zolPIDEM TARTRATE 5 MG TAB PO SCH (20:17)
[2023-05-13] MEDS: ANAGRELIDE 0.5 MG PO SCH (20:17)
[2023-05-13] MEDS: OLANZapine 2.5MG TABLET PO SCH (20:17)
[2023-05-13] MEDS: DOCUSATE SODIUM 100MG CAPSULE PO SCH (20:17)
[2023-05-13] MEDS ORDERED: ATORVASTATIN 20 MG TAB PO SCH (21:00)
[2023-05-13 22:04] VITALS: BP 176/60
[2023-05-13] MEDS: HEPARIN SOD (PORCINE) 5000UNITS/ML 1ML VIAL/SYRINGE SC SCH (22:09)
[2023-05-13 23:40] VITALS: BP 158/70; TEMP 99.9; O2SAT 90
[2023-05-14] MEDS ORDERED: MAG SULF 1GM/100ML (MAG RUN) 1 GM in IV 1 EA IV ONE (01:00)
[2023-05-14 04:03] VITALS: BP 200/84; TEMP 97.8; O2SAT 93
[2023-05-14] MEDS: hydrALAZINE 20MG/ML 1ML VIAL IV SCH ×2 (04:18→11:08)
[2023-05-14] MEDS: HEPARIN SOD (PORCINE) 5000UNITS/ML 1ML VIAL/SYRINGE SC SCH (05:33)
[2023-05-14 05:36] VITALS: BP 156/62
[2023-05-14 07:07] LABS: HEMATOCRIT 27.8 % (36.0-47.0); HEMOGLOBIN 8.1 g/dl (12.0-15.5); MEAN CORPUSCULAR HEMOGLOBIN 27.2 pg (27.0-33.0); MEAN CORPUSCULAR HGB CONC 29.1 g/dl (32.0-36.5); MEAN CORPUSCULAR VOLUME 93.3 fl (80.0-96.0); PLATELET COUNT, AUTOMATED 165 10^3/uL (150-450); RED BLOOD COUNT 2.98 10^6/uL (4.00-5.40); WHITE BLOOD COUNT 2.9 10^3/uL (4.0-10.0)
[2023-05-14 07:28] LABS: ALBUMIN 2.2 G/DL (3.2-5.2); ALKALINE PHOSPHATASE 64 U/L (46-116); ALT/SGPT < 9 U/L (7.0-40); AST/SGOT 40 U/L (<34); BILIRUBIN,TOTAL 0.3 MG/DL (0.3-1.2); BLOOD UREA NITROGEN 27 MG/DL (9-23); CALCIUM LEVEL 7.7 MG/DL (8.3-10.6); CARBON DIOXIDE LEVEL 24 MMOL/L (20-31); CHLORIDE LEVEL 111 MMOL/L (98-107); GLOMERULAR FILTRATION RATE 39.2 (>39); GLUCOSE, FASTING 95 MG/DL (74-106); MAGNESIUM LEVEL 2.1 MG/DL (1.8-2.4); SODIUM LEVEL 143 MMOL/L (136-145); TOTAL PROTEIN 5.2 G/DL (5.7-8.2)
[2023-05-14 07:52] VITALS: BP 198/78; TEMP 99.7; O2SAT 96
[2023-05-14 07:58] LABS: LYMPHOCYTES 14 % (16-44); METAMYELOCYTES 1 % (0-0); MONOCYTES 2 % (0-5); MYELOCYTES 1 % (0-0); NEUTROPHILS 30 % (28-66)
[2023-05-14 08:01] LABS: ATYPICAL LYMPH 25 % (0-5); BLAST CELLS 24 % (0-0)
[2023-05-14 08:02] LABS: ANISOCYTOSIS 1+; OVALOCYTES 1+; TEAR DROP CELLS 4+
[2023-05-14 08:03] LABS: PLATELET ESTIMATE NORMAL (NORMAL)
[2023-05-14] MEDS ORDERED: NS 1,000 ML IV SCH (08:50)
[2023-05-14] MEDS: OMEPRAZOLE 20MG CAP PO SCH (08:54)
[2023-05-14] MEDS: PARoxetine 10MG TABLET PO SCH (08:54)
[2023-05-14] MEDS: DOCUSATE SODIUM 100MG CAPSULE PO SCH ×2 (08:54→20:33)
[2023-05-14] MEDS: ANAGRELIDE 0.5 MG PO SCH (08:55)
[2023-05-14] MEDS ORDERED: CARVedilol 6.25 MG TAB PO SCH ×2 (09:00→21:00)
[2023-05-14] MEDS ORDERED: amLODIPine 5 MG TAB PO SCH (09:00)
[2023-05-14 11:00] VITALS: BP 176/78
[2023-05-14] MEDS: NORCO, ANEXSIA 5/325MG TABLET (HYDROcodone/ACETAMINOPHEN) PO PRN (11:12)
[2023-05-14] MEDS ORDERED: CARVedilol 6.25 MG TAB PO ONE (11:15)
[2023-05-14 11:51] VITALS: BP 146/64; TEMP 98.5; O2SAT 94
[2023-05-14 11:59] VITALS: BP 146/64
[2023-05-14] MEDS ORDERED: SCOPOLAMINE 1MG TRANSDERMAL PATCH TOP PRN (14:25)
[2023-05-14] MEDS ORDERED: LORazepam 2 MG/ML 1ML VIAL IV PRN (14:25)
[2023-05-14] MEDS ORDERED: FLEET ENEMA PR PRN (14:25)
[2023-05-14] MEDS ORDERED: BISACODYL 10MG SUPP PR PRN (14:25)
[2023-05-14] MEDS: PROMETHAZINE 25MG/ML 1ML VIAL IV PRN (16:45)
[2023-05-14] MEDS: zolPIDEM TARTRATE 5 MG TAB PO SCH (20:33)
[2023-05-14] MEDS: OLANZapine 2.5MG TABLET PO SCH (20:33)
[2023-05-15] MEDS: OMEPRAZOLE 20MG CAP PO SCH (08:42)
[2023-05-15] MEDS: DOCUSATE SODIUM 100MG CAPSULE PO SCH ×2 (08:42→21:14)
[2023-05-15] MEDS: PARoxetine 10MG TABLET PO SCH (08:42)
[2023-05-15] MEDS: MORPHINE 2 MG/ML 1ML VIAL IV PRN ×2 (12:39→16:01)
[2023-05-15] MEDS: OLANZapine 2.5MG TABLET PO SCH (21:13)
[2023-05-15] MEDS: zolPIDEM TARTRATE 5 MG TAB PO SCH (21:13)
[2023-05-16] MEDS: DOCUSATE SODIUM 100MG CAPSULE PO SCH ×2 (09:37→20:51)
[2023-05-16] MEDS: PARoxetine 10MG TABLET PO SCH (09:38)
[2023-05-16] MEDS: OMEPRAZOLE 20MG CAP PO SCH (09:38)
[2023-05-16] MEDS: PROMETHAZINE 25MG/ML 1ML VIAL IV PRN (09:44)
[2023-05-16] MEDS: MORPHINE 2 MG/ML 1ML VIAL IV PRN ×3 (09:47→20:51)
[2023-05-16] MEDS: ONDANSETRON 4MG 2ML VIAL IV PRN ×2 (14:12→20:50)
[2023-05-16] MEDS: OLANZapine 2.5MG TABLET PO SCH (20:51)
[2023-05-16] MEDS: zolPIDEM TARTRATE 5 MG TAB PO SCH (20:51)
[2023-05-17] MEDS: ONDANSETRON 4MG 2ML VIAL IV PRN (05:40)
[2023-05-17] MEDS: MORPHINE 2 MG/ML 1ML VIAL IV PRN ×2 (05:41→17:04)
[2023-05-17] MEDS: DOCUSATE SODIUM 100MG CAPSULE PO SCH ×2 (08:51→20:19)
[2023-05-17] MEDS: OMEPRAZOLE 20MG CAP PO SCH (08:52)
[2023-05-17] MEDS: PARoxetine 10MG TABLET PO SCH (08:52)
[2023-05-17] MEDS ORDERED: ATIV1TAB10 PO (14:59)
[2023-05-17] MEDS ORDERED: HYOS125TA PO (14:59)
[2023-05-17] MEDS ORDERED: MORP1SOL5 PO (14:59)
[2023-05-17] MEDS: OLANZapine 2.5MG TABLET PO SCH (20:19)
[2023-05-17] MEDS: zolPIDEM TARTRATE 5 MG TAB PO SCH (20:19)
[2023-05-18] MEDS ORDERED: LORazepam 1 MG TAB PO PRN (08:45)
[2023-05-18] MEDS: PARoxetine 10MG TABLET PO SCH (08:54)
[2023-05-18] MEDS: DOCUSATE SODIUM 100MG CAPSULE PO SCH (08:54)
[2023-05-18] MEDS: OMEPRAZOLE 20MG CAP PO SCH (08:54)
[2023-05-18] MEDS ORDERED: ONDANSETRON 4MG ORAL DISINTEGRATING TAB PO PRN (09:00)
[2023-05-18] MEDS ORDERED: PROMETHAZINE 25 MG TAB PO PRN (09:15)
== END 2023-05-18 10:39 | disposition hospice, inpatient (51) ==
LOC: M ED 03:26 → M ED INP 03:27 → M PCU 15:57 → M MSPAV 05-14 16:48
PROVIDERS: ADMIT Internal Medicine; ATTEND Internal Medicine
DX: R16.1 Splenomegaly, not elsewhere classified (principal); D75.81 Myelofibrosis; N17.0 Acute kidney failure with tubular necrosis; I10 Essential (primary) hypertension; J30.2 Other seasonal allergic rhinitis; Z79.899 Other long term (current) drug therapy; I47.10 Supraventricular tachycardia, unspecified; F32.A Depression, unspecified; D47.3 Essential (hemorrhagic) thrombocythemia; R11.2 Nausea with vomiting, unspecified; I73.9 Peripheral vascular disease, unspecified
CPT/HCPCS: 36415; 74177; 80048; 80053; 80076; 80503; 82550; 82553; 83690; 83735; 84484; 85025; 87635; 93005; 96361; 96372; 96374; 96375; 96376; 99285; G0378; J0360; J2060; J2405; J2550; J3475; Q9967